=== PATIENT | female | born 2000 | race Hispanic/Latino ===

== ENCOUNTER 2019-09-01 09:41 | Emergency (ER) | payer OTHER, SELFPAY ==
[2019-09-01 10:08] VITALS: BP 126/70; PULSE 104; RESP 16; TEMP 37.2; O2SAT 100
--- NOTE | 2019-09-01 10:40 | ED.URI ---
HPI - URI/Sore Throat General Chief Complaint: Upper Respiratory Infection Stated Complaint: cold Time Seen by Provider: 09/01/19 10:29 Source: patient and RN notes reviewed Mode of arrival: ambulatory Limitations: no limitations History of Present Illness HPI Narrative: Patient presents today complaining of 3-day history of dry cough. States she had a runny nose during onset of cough, but this has resolved. Denies fever, congestion, sore throat. Reports sick contacts at work. At onset of symptoms, she did take 1 cough pill at home, which provided some relief. 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 Patient was told not to return to work until she has been tested for COVID-19. MD elicited complaint: cough Related Data Home Medications Medication Instructions Recorded Confirmed No Home Medications 09/01/19 09/01/19 Allergies Allergy/AdvReac Type Severity Reaction Status Date / Time No Known Allergies Allergy Unverified 11/24/10 12:20 Review of Systems Review of Systems: Narrative: CONSTITUTIONAL: Denies body aches, fever, chills, or sweats. EYES: Denies visual changes, redness, or discharge. ENT: Denies congestion, sore throat, or otalgia.+ Rhinorrhea?resolved CARDIOVASCULAR: Denies chest pain, palpitations, or edema. RESPIRATORY: Denies dyspnea.+ Cough GASTROINTESTINAL: Denies abdominal pain, nausea, vomiting, or diarrhea. GENITOURINARY: Denies dysuria or hematuria. SKIN: Denies rash, itching, or wounds. MUSCULOSKELETAL: Denies back pain, joint pain, or myalgia. NEUROLOGIC: Denies headache, numbness, tingling, or weakness. PSYCH: Denies depression or anxiety. PMFSH Comments At time of signature, I have reviewed and agree with nursing past medical, surgical, social and family history unless otherwise noted. Please see nursing chart for further information. There is no relevant family history pertinent to the presenting complaint Exam Narrative: Exam Narrative: GENERAL: Well-appearing, well-nourished, and in no acute distress. HEAD: Normocephalic, atraumatic. EYES: EOMI. No redness or drainage. Conjunctivae normal. ENT: Mucous membranes pink and moist. Nares clear. No rhinorrhea. TMs normal bilaterally. Throat normal with small amount of postnasal drainage. Uvula midline. NECK: Normal AROM. Supple. No lymphadenopathy. CHEST: No respiratory distress. Clear to auscultation. HEART: Regular rate and rhythm. No murmur appreciated. Normal peripheral pulses. ABDOMEN: Soft, nontender, nondistended, normal active bowel sounds. MUSCULOSKELETAL: No bony tenderness. EXTREMITIES: Normal range of motion. No edema. SKIN: Warm, dry, no rash. Capillary refill normal. Normal skin turgor. NEURO: No focal deficits. Alert and oriented x3. Gait steady. PSYCH: Normal affect. No signs of depression or anxiety. Course Course Emergency Course: Will write patient for COVID testing. At this time, the likelihood of her having COVID-19 is rather low in my opinion, based on her HPI and exam findings. Symptoms are likely due to environmental allergies. Educated patient on treatment. Vital Signs Vital signs: Vital Signs Temperature 99.0 F 09/01/19 10:08 Pulse Rate 104 H 09/01/19 10:08 Respiratory Rate 16 09/01/19 10:08 Blood Pressure 126/70 09/01/19 10:08 Pulse Oximetry 100 09/01/19 10:08 Temperature 99.0 F 09/01/19 10:08 Pulse Rate 104 H 09/01/19 10:08 Respiratory Rate 16 09/01/19 10:08 Blood Pressure 126/70 09/01/19 10:08 Pulse Oximetry 100 09/01/19 10:08 MDM - URI/Sore Throat Differential Diagnosis Differential diagnosis: Likely upper respiratory infection, bronchitis and other (Allergic rhinitis, seasonal allergies) Critical Care Time Critical Care Time Critical Care Time: No Discharge Plan Discharge Clinical Impression: Allergic rhinitis Qualifiers: Allergic rhinitis trigger: unspecified Allergic rhinitis s
--- NOTE | 2019-09-01 10:59 | PC.NURSE ---
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
== END 2019-09-01 10:53 | disposition home or self-care (01) ==
PROVIDERS: Emergency Provider Nurse Practitioner
DX: U07.1 COVID-19 (principal); J30.2 Other seasonal allergic rhinitis
CPT/HCPCS: 87635; 99211; C9803; G0463; U0003

== ENCOUNTER 2020-09-28 22:35 | Emergency (ER) | payer OTHER, SELFPAY ==
--- NOTE | ~2020-09-28 | XR_ITS ---
EXAMINATION: XR chest 2V 09/28/2020 22:59 INDICATION: Chest pain and chest palpitations PROCEDURE: 2 view chest COMPARISON: 10/18/2020 FINDINGS: The lungs are clear. The cardiomediastinal silhouette is within normal limits. There are no pleural effusions. There is no pneumothorax suspected. IMPRESSION: 1: NO ACUTE CARDIOPULMONARY DISEASE. Reviewed, dictated and finalized at location A.
[2020-09-28 22:37] VITALS: BP 142/92; PULSE 115; RESP 16; TEMP 36.6; O2SAT 97
--- NOTE | 2020-09-28 22:40 | ECG_ITS ---
Measurements Intervals [place] Rate: 107 P: 52 [place]: 158 QRS: 54 QRSD: 87 T: 13 QT: 329 QTc: 441 Interpretive Statements SINUS TACHYCARDIA INCOMPLETE RIGHT BUNDLE BRANCH BLOCK MINIMAL Q WAVES- INFERIOR LEADS BASELINE ARTIFACT- I, II, III, AVR, AVF ABNORMAL ECG Electronically Signed On 09-29-2020 8:18:30 CDT by Osman Aleman D.O.
[2020-09-28 22:59] LABS: Basophils Percent Auto 0.3 % (0.2-1.2); Eosinophils Absolute Auto 0.1 K/mm3 (0-0.3); Eosinophils Percent Auto 0.4 % (0-4.4); Hematocrit 38.4 % (37.0-47.0); Hemoglobin 12.5 g/dL (12.0-15.0); Immature Granulocyte Absolute 0.04 K/mm3 (0.00-0.031); Immature Granulocyte Percent A 0.3 % (0-0.5); Mean Corpuscular HGB Conc 32.6 g/dl (32-36); Mean Corpuscular Hemoglobin 28.5 pg (26-34); Mean Corpuscular Volume 87.7 fl (80-100); Mean Platelet Volume 9.6 fl (7.4-10.4); Monocytes Percent Auto 7.8 % (2.6-8.5); Neutrophils Absolute Auto 8.4 K/mm3 (1.3-6.7); Neutrophils Percent Auto 67.2 % (45.5-73.1); Platelet Count Result 298 k/mm3 (150-375); Red Blood Count 4.38 M/mm3 (4.2-5.4); Red Cell Distribution Width 13.3 % (11.5-14.5); White Blood Count 12.5 K/mm3 (4.5-10.0)
[2020-09-28 23:10] LABS: Prothrombin Time 12.6 Seconds (11.1-14.7)
[2020-09-28 23:11] LABS: Partial Thromboplastin Time 27.9 SECONDS (22.3-36.8)
[2020-09-28 23:12] LABS: Anion Gap 11 mmol/L (8-16); Blood Urea Nitrogen 11 mg/dL (7-17); Calcium 9.5 mg/dL (8.4-10.2); Carbon Dioxide 24 mmol/L (22-30); Chloride 103 mmol/L (98-107); Estimated CRCL calculation 103 ml/min; Estimated Glomerular Filt Rate > 60; Glucose 119 mg/dL (65-105); Potassium 3.5 mmol/L (3.4-5.0); Sodium 138 mmol/L (137-145)
[2020-09-28 23:24] LABS: Troponin I < 0.012 ng/mL (0.000-0.034)
[2020-09-29] VITALS (12 sets, daily range): BP systolic 96–117; BP diastolic 58–80; PULSE 67–97; RESP 16–20; TEMP 36.3; O2SAT 99–100
[2020-09-29 04:43] LABS: Troponin I < 0.012 ng/mL (0.000-0.034)
--- NOTE | 2020-09-29 04:47 | ED.GENADULT ---
HPI - General Adult General Chief complaint: Arrhythmia/Palpitations Stated complaint: heart palpatations Time Seen by Provider: 09/29/20 03:30 History of Present Illness HPI narrative: Patient is a 19-year-old female presents emerged from with chief complaint of palpitations and chest pain. Patient reports that she started having some episodes where she noticed that her heart rate would go up to 120 and noticed that she had some tightness in her chest. Patient reports that currently symptoms have resolved at this point but states she is concerned because her heart rate keeps popping up intermittently to about 120. Patient denies syncope reports that she elevated tightness whenever this happens reports that she has been under more stress and reports that she has been consuming a fair amount of caffeine Related Data Home Medications Medication Instructions Recorded Confirmed No Home Medications 09/01/19 09/01/19 Allergies Allergy/AdvReac Type Severity Reaction Status Date / Time No Known Allergies Allergy Verified 09/29/20 03:43 Review of Systems Review of Systems: Narrative: A 10 system review of systems was completed on the patient and is negative except for what is stated in the HPI. Nursing and ancillary documentation was reviewed. [facility] Social History Social History Gender identity (if verbalized by the patient): Female Exam Narrative: Exam Narrative: GENERAL: Well-appearing, well-nourished, and in no acute distress. HEAD: Normocephalic, atraumatic. EYES: PERRLA and EOMI. ENT: Nares clear, no rhinorrhea or epistaxis. Mucous membranes moist. NECK: Supple. CHEST: Clear to auscultation. No respiratory distress. HEART: Regular rate and rhythm. No murmur heard. Normal peripheral pulses. ABDOMEN: Soft, nontender, nondistended, normal active bowel sounds. EXTREMITIES: Normal range of motion. No edema. SKIN: Warm, dry, no rash. NEURO: No focal deficits. Alert and oriented x3. PSYCH: Normal mood and affect. Course Course Emergency Course: EKG is sinus tachycardia with rate of [address] elevation or ST depression or widened QRS no QT prolongation Vital Signs Vital signs: Vital Signs Temperature 36.6 C 09/28/20 22:37 Pulse Rate 115 H 09/28/20 22:37 Respiratory Rate 16 09/28/20 22:37 Blood Pressure 142/92 H 09/28/20 22:37 Pulse Oximetry 97 09/28/20 22:37 Temperature 36.3 C L 09/29/20 00:49 Pulse Rate 79 09/29/20 04:15 Respiratory Rate 18 09/29/20 04:15 Blood Pressure 97/69 L 09/29/20 04:15 Pulse Oximetry 100 09/29/20 03:40 Medical Decision Making Vital Signs Vital Signs: Vital Signs Temperature 36.6 C 09/28/20 22:37 Pulse Rate 115 H 09/28/20 22:37 Respiratory Rate 16 09/28/20 22:37 Blood Pressure 142/92 H 09/28/20 22:37 Pulse Oximetry 97 09/28/20 22:37 Temperature 36.3 C L 09/29/20 00:49 Pulse Rate 79 09/29/20 04:15 Respiratory Rate 18 09/29/20 04:15 Blood Pressure 97/69 L 09/29/20 04:15 Pulse Oximetry 100 09/29/20 03:40 Lab Data Result diagrams: 09/28/20 22:48 09/28/20 22:48 Labs: Lab Results 09/28/20 09/28/20 09/28/20 Range/Units 22:48 22:48 22:48 WBC 12.5 H (4.5-10.0) K/mm3 RBC 4.38 (4.2-5.4) M/mm3 Hgb 12.5 (12.0-15.0) g/dL Hct 38.4 (37.0-47.0) % MCV 87.7 (80-100) fl MCH 28.5 (26-34) pg MCHC 32.6 (32-36) g/dl RDW 13.3 (11.5-14.5) % Plt Count 298 (150-375) k/mm3 MPV 9.6 (7.4-10.4) fl Immature Gran % (Auto) 0.3 (0-0.5) % Neut % (Auto) 67.2 (45.5-73.1) % Lymph % (Auto) 24.0 (18.3-44.2) % [place] % (Auto) 7.8 (2.6-8.5) % Eos % (Auto) 0.4 (0-4.4) % Baso % (Auto) 0.3 (0.2-1.2) % Lymph # (Auto) 3.00 (0.9-3.2) K/mm3 [place] # (Auto) 1.0 H (0.1-0.6) K/mm3 Eos # (Auto) 0.1 (0-0.3) K/mm3 Baso # (Auto) 0.0 (0.0-0.1) K/mm3 Abs Immat Gran
== END 2020-09-29 05:10 | disposition home or self-care (01) ==
PROVIDERS: Emergency Medicine; Emergency Provider Emergency Medicine
DX: R00.2 Palpitations (principal); R00.0 Tachycardia, unspecified; I45.10 Unspecified right bundle-branch block
CPT/HCPCS: 36415; 71046; 80048; 84484; 85025; 85610; 85730; 93005; 99284

== ENCOUNTER 2021-06-03 11:37 | Outpatient (CLI) | payer OTHER, SELFPAY ==
--- NOTE | ~2021-06-03 | US_ITS ---
EXAMINATION: US soft tissue head and neck DATE: 06/03/2021 12:23 INDICATION: Left neck lump. TECHNIQUE: Multiple grayscale and Doppler ultrasound images of the neck were obtained. COMPARISON: None FINDINGS: There are normal lymph nodes in the neck bilaterally. The submandibular glands are unremark able. IMPRESSION: 1. No abnormal mass or lymphadenopathy. Reviewed, dictated and finalized at location A. 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
--- NOTE | ~2021-06-03 | US_ITS ---
EXAMINATION: US abdomen complete EXAM DATE: 06/03/2021 12:23 INDICATION: Upper abdominal pain. TECHNIQUE: Multiple grayscale and Doppler images of the complete abdomen were obtained (by a technolo gist who performed the scan) and subsequently reviewed. There is no prior study for comparison. FINDINGS: The abdominal aorta is normal in caliber. Visualized portion IVC is patent. The pancreatic head a nd body are normal in appearance. The pancreatic tail is not visualized. The liver has normal echogenicity and contour. There are no focal liver lesions identified. There is no evidence of intrahepatic biliary duct dilation. Portal venous flow was seen in the hepatopedal , normal direction and has normal Doppler waveform. Common bile duct measures 4 mm, which is normal. The gallbladder wall is normal in thickness, with ex pected amount of distention. No sonographic evidence of pericholecystic fluid. There is no cholelit hiases. Technologist performing exam reports patient did not demonstrate sonographic Royal's sign. Please note that this sign is less reliable in patients who have received pain medication. Right kidney: There is normal contour and echogenicity. It measures 10.9 x 4.8 x 4.9 centimeters. There are no focal renal lesions identified. There is no hydronephrosis. Left kidney: There is normal contour and echogenicity. It measures 11.3 x 3.9 x 4.8 centimeters. T here are no focal renal lesions identified. There is no hydronephrosis. The spleen measures 9.3 centimeters and is morphologically normal. IMPRESSION: 1. Unremarkable complete abdominal ultrasound exam. Reviewed, dictated and finalized at location A. 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
== END 2021-06-03 11:38 | disposition home or self-care (01) ==
PROVIDERS: PCP Internal Medicine Infectious Disease; Visit Provider Internal Medicine Infectious Disease
DX: R10.10 Upper abdominal pain, unspecified (principal); R22.1 Localized swelling, mass and lump, neck
CPT/HCPCS: 76536; 76700

== ENCOUNTER 2022-06-29 08:50 | Emergency (ER) | payer OTHER, SELFPAY ==
[2022-06-29 09:05] VITALS: BP 127/83; PULSE 92; RESP 16; TEMP 36.6; O2SAT 100
--- NOTE | 2022-06-29 09:07 | ED.NAVMDI ---
HPI - Nausea/Vomiting/Diarrhea General Chief complaint: Nausea/Vomiting/Diarrhea Stated complaint: Abdominal Pain/Vomiting/Headache Time Seen by Provider: 06/29/22 09:14 Source: patient and RN notes reviewed Mode of arrival: ambulatory Limitations: no limitations History of Present Illness HPI Narrative: 21-year-old female presents concern for nausea, 2 episodes of vomiting, epigastric discomfort, headache that started last night. She reports she ate fits yesterday and has sometimes had vomiting when she eats fish. She reports some sinus pressure, denies sore throat. She denies diarrhea. 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 She denies taking any medications for her symptoms. MD elicited complaint: nausea and vomiting Related Data Allergies Allergy/AdvReac Type Severity Reaction Status Date / Time No Known Allergies Allergy Verified 06/29/22 09:04 Review of Systems Review of Systems: CONSTITUTIONAL: Denies malaise, chills, sweats, or fever. ENT: Denies rhinorrhea, sinus pain, otalgia or sore throat. Reports sinus pressure CARDIOVASCULAR: Denies chest pain, palpitations, or edema. RESPIRATORY: Denies cough or dyspnea. GASTROINTESTINAL: Reports epigastric abdominal discomfort, nausea, vomiting. Denies diarrhea, bloody, or mucous stools. GENITOURINARY: Denies dysuria or hematuria. MUSCULOSKELETAL: Denies myalgia. NEUROLOGIC: Reports headache. All systems reviewed & are unremarkable except as noted in HPI and below PMFSH Social History Social History Gender identity (if verbalized by the patient): Female Comments At time of signature, agree with nursing past medical, surgical, social and family history. There is no relevant family history pertinent to the presenting complaint Exam Narrative: GENERAL: Well-appearing, well-nourished, and in no acute distress. HEAD: Normocephalic, atraumatic. EYES: PERRLA, conjunctivae clear, and EOMI. ENT: Nares clear, turbinates pink, no rhinorrhea or epistaxis. Mucous membranes moist. Oropharynx without edema, erythema, or lesions. Tonsils not enlarged and without exudate. NECK: Supple. No lymphadenopathy CHEST: Speaks in full sentences. No respiratory distress. HEART: Regular rate and rhythm. ABDOMEN: Soft, flat, nondistended, nontender. No guarding, rebound tenderness, or rigidity. No pulsatile masses. Bowel sounds present in all four quadrants. No organomegaly. Negative Royal?s sign. No periumbilical tenderness. No Supra public tenderness or distension. Good femoral pulses bilaterally. No hernia noted. No scars or surface trauma. SKIN: Warm, dry, no rash. NEURO: Alert and oriented x3. PSYCH: Normal mood and affect Course Course Emergency Course: Patient is aware of diagnosis, understands and agrees to treatment plan. Anticipatory guidance given. Patient agrees to follow-up as directed and is aware of reasons to seek care at the emergency department. Portions of this record may have been created with voice recognition software Level of Care: Express Care Visit Vital Signs Vital signs: Vital Signs Temperature 97.9 F 06/29/22 09:05 Pulse Rate 92 06/29/22 09:05 Respiratory Rate 16 06/29/22 09:05 Blood Pressure 127/83 06/29/22 09:05 Pulse Oximetry 100 06/29/22 09:05 Oxygen Delivery Room Air 06/29/22 09:05 Temperature 97.9 F 06/29/22 09:05 Pulse Rate 92 06/29/22 09:05 Respiratory Rate 16 06/29/22 09:05 Blood Pressure 127/83 06/29/22 09:05 Pulse Oximetry 100 06/29/22 09:05 Oxygen Delivery Room Air 06/29/22 09:05 Reviewed. MDM - Nausea/Vomiting/Diarrhea MDM Narrative Medical decision making narrative: No evidence of pancreatitis, AAA, cholecystitis, choledocholithiasis, cholangitis, mesenteric ischemia, small bowel obstruction, diverticulitis, colitis, appendicitis, or pelvic etiology such as ovarian torsion, TOA, or ectopic . Patient
== END 2022-06-29 09:37 | disposition home or self-care (01) ==
PROVIDERS: Emergency Provider Nurse Practitioner
DX: R11.2 Nausea with vomiting, unspecified (principal)
CPT/HCPCS: 87081; 87880; 99213; G0463

== ENCOUNTER 2023-04-02 09:33 | Emergency (ER) | payer OTHER, SELFPAY ==
[2023-04-02 09:50] VITALS: BP 136/83; PULSE 109; RESP 16; TEMP 36.9; O2SAT 99
--- NOTE | 2023-04-02 10:11 | ED.UPPEXIN ---
HPI - Extremity Injury (Upper) General Chief Complaint: Extremity Injury, Upper Stated Complaint: left foot/forearm pain after accident 1 year ago Time Seen by Provider: 04/02/23 10:11 Source: patient Mode of arrival: ambulatory Limitations: no limitations History of Present Illness HPI narrative: 22-year-old female presents today with complaint of pain to left elbow and forearm. States yesterday she picked up a bag of ice and felt pop in her left elbow. Had pain and was unable to go to work today. Patient requesting note for work to return tomorrow. Patient offered x-ray to evaluate injury but She did not want X-ray. All systems reviewed and negative except as noted above. Related Data Home Medications Medication Instructions Recorded Confirmed No Home Medications 04/02/23 04/02/23 Allergies Allergy/AdvReac Type Severity Reaction Status Date / Time No Known Allergies Allergy Verified 04/02/23 10:15 Review of Systems Review of Systems: CONSTITUTIONAL: Denies fever, chills, or sweats. EYES: Denies visual changes, redness, or discharge. ENT: Denies rhinorrhea, congestion, sore throat, or otalgia. CARDIOVASCULAR: Denies chest pain, palpitations, or edema. RESPIRATORY: Denies cough or dyspnea. GASTROINTESTINAL: Denies abdominal pain, nausea, vomiting, or diarrhea. GENITOURINARY: Denies dysuria or hematuria. SKIN: Denies rash or itching. MUSCULOSKELETAL: Denies back pain . Reports pain to left elbow and forearm. NEUROLOGIC: Denies headache, numbness, or weakness. PSYCHIATRIC: Denies anxiety or depression. All other systems reviewed are negative, except as documented in HPI. PMFSH Social History Social History Gender identity (if verbalized by the patient): Female Comments At time of signature, agree with nursing past medical, surgical, social and family history. There is no relevant family history pertinent to the presenting complaint. Exam Narrative: GENERAL: This is a well-nourished, well-developed patient, in no apparent distress. HEAD: normocephalic, atraumatic. EYES: PERRL. Sclera clear/white. Vision is grossly intact. EARS: External ears normal NOSE: External nose normal NECK: Neck supple, non-tender without lymphadenopathy, masses or thyromegaly. CARDIOVASCULAR: Regular rate and rhythm without murmurs, gallops, or rubs. RESPIRATORY: Clear to auscultation. Breath sounds equal bilaterally. No wheezes, rales, or rhonchi. SKIN: warm, Dry, intact with no suspicious lesions or rash, good texture and turgor. NEURO: awake, alert, and oriented to person, place and time. There were no obvious focal neurologic abnormalities. EXTREMITIES: No joint tenderness, effusion, or edema noted. Normal range of motion to left elbow and forearm. No tenderness on palpation. No swelling or contusion noted. Distal neurovascularly intact. Course Course Level of Care: Express Care Visit Vital Signs Vital signs: Vital Signs Temperature 36.9 C 04/02/23 09:50 Pulse Rate 109 H 04/02/23 09:50 Respiratory Rate 16 04/02/23 09:50 Blood Pressure 136/83 04/02/23 09:50 Pulse Oximetry 99 04/02/23 09:50 Oxygen Delivery Room Air 04/02/23 09:50 Temperature 36.9 C 04/02/23 09:50 Pulse Rate 109 H 04/02/23 09:50 Respiratory Rate 16 04/02/23 09:50 Blood Pressure 136/83 04/02/23 09:50 Pulse Oximetry 99 04/02/23 09:50 Oxygen Delivery Room Air 04/02/23 09:50 Reviewed MDM - Extremity Injury (Upper) MDM Narrative Medical decision making narrative: patient here for pain to left elbow and forearm after picking up a bag of ice. Patient needs work note. Does not want x-ray. Patient is aware of diagnosis, understands and agrees to treatment plan. Anticipatory guidance given. Patient agrees to follow-up as directed and is aware of reasons to seek care at the emergency department. Portions of this record
== END 2023-04-02 10:25 | disposition home or self-care (01) ==
PROVIDERS: Emergency Provider Nurse Practitioner Family
DX: S56.912A Strain of unspecified muscles, fascia and tendons at forearm level, left arm, initial encounter (principal); X58.XXXA Exposure to other specified factors, initial encounter
CPT/HCPCS: 99212; G0463

== ENCOUNTER 2023-06-26 14:58 | Emergency (ER) | payer OTHER, SELFPAY ==
--- NOTE | ~2023-06-26 | XR_ITS ---
EXAMINATION: XR chest 2V Exam Date/Time: 06/26/2023 16:40 CDT HISTORY: left sided chest discomfort/palpitations Comparison: 09/28/2020, report only. RESULT: Lines, tubes, and devices: None. Lungs and pleura: Clear. Cardiomediastinal silhouette: Normal. Other: No acute osseous or upper abdominal finding. IMPRESSION: No acute cardiopulmonary process. Reviewed, dictated and finalized at location K.
--- NOTE | ~2023-06-26 | CT_ITS ---
EXAMINATION: CT brain wo con DATE: 06/26/2023 16:43 INDICATION: palpitations- tingling to the side of face . TECHNIQUE: Computed tomography (CT) of the head was performed without intravenous contrast. The mA wa s adjusted according to patient size. Iterative reconstruction technique was employed. The dose-lengt h product was 605.33 mGy-cm. COMPARISON: None. FINDINGS: No acute intracranial hemorrhage or extra-axial fluid collection. No hydrocephalus, mass, or herniation. No acute ischemic infarct. Unremarkable dural venous sinus attenuation. No acute osseous abnormality. The aerated spaces are clear. IMPRESSION: No acute intracranial process. Reviewed, dictated and finalized at location K.
--- NOTE | 2023-06-26 15:00 | ECG_ITS ---
Measurements Intervals [place] Rate: 114 P: 61 CO: 164 QRS: 66 QRSD: 97 T: 28 QT: 319 QTc: 441 Interpretive Statements SINUS TACHYCARDIA POSSIBLE LEFT ATRIAL ENLARGEMENT [-0.1mV P-WAVE IN V1/V2] INCOMPLETE RIGHT BUNDLE BRANCH BLOCK NONSPECIFIC T-WAVE ABNORMALITY COMPARED TO ECG 09/28/2020 22:43:48 NO SIGNIFICANT CHANGES Electronically Signed On 06-27-2023 12:16:59 CDT by Francisca Salazar M.D.
[2023-06-26 15:04] VITALS: BP 161/101; PULSE 117; RESP 20; TEMP 36.7; O2SAT 100
--- NOTE | 2023-06-26 15:43 | ED.ARRPALP ---
HPI - Arrhythmia/Palpitations General Chief Complaint: Arrhythmia/Palpitations Stated Complaint: palpitations Time Seen by Provider: 06/26/23 15:49 Focused HPI: Farzana is a 22-year-old female patient presenting to the ER today with complaints of left-sided facial tingling, near syncope, palpitations, shortness breath, and left-sided chest discomfort. She reports she has had the symptoms for approximately 2 weeks. Was seen in the urgent care and the provider stated that she may have pot syndrome. Left-sided chest discomfort is more so when taking deep breath and is reproducible upon palpation. Feels as though her heart is beats up and then slows down. Had to leave work today due to the symptoms. General: Well-developed, well nourished, in no apparent distress Head: Normocephalic, atraumatic Eyes: Pupils equally round and reactive to light bilaterally, EOM intact, sclera and conjunctive clear, no discharge, lids normal Ears: TMs intact and clear, ear canals clear, no drainage, grossly hearing normal. Nose: Nares patent, no discharge, no inflammation, no sinus tenderness. Mouth: Oropharynx without lesions or masses, good dentition, MMM. Tongue midline, even rise and fall of uvula Neck: Supple, trachea midline, no enlargement of anterior or posterior cervical nodes, no thyroid masses or goiter palpable. Cardio: Regular rate and rhythm, s1 and s2 normal, no murmur appreciated. Resp: Clear to auscultation bilaterally anteriorly and posteriorly, no rhonchi, rales, wheezing or rubs Musculoskeletal: No deformity,tender to palpation over the left chest wall, grossly normal range of motion, muscle strength strong and equal, peripheral pulse strong, no edema, no cyanosis, normal gait and station Neuro: Alert and oriented x4 with normal speech, no focal deficits, cranial nerves I through XII intact, muscle strength 5 out of 5, sensation intact but dull to the left side of the face when compared to right side of face-feels as though she has got tingling sensation in the left side of her face. Able to wrinkle forehead, close eyes tightly bilaterally, and smile is symmetric Patient screened in triage and initial orders placed. Additional care and disposition to be based upon diagnostic testing and treatment. Related Data Allergies Allergy/AdvReac Type Severity Reaction Status Date / Time No Known Allergies Allergy Verified 04/02/23 10:15 [facility] Social History Social History Gender identity (if verbalized by the patient): Female Course Vital Signs Vital signs: Vital Signs Temperature 36.7 C 06/26/23 15:04 Pulse Rate 117 H 06/26/23 15:04 Respiratory Rate 20 06/26/23 15:04 Blood Pressure 161/101 H 06/26/23 15:04 Pulse Oximetry 100 06/26/23 15:04 Oxygen Delivery Room Air 06/26/23 15:04 Temperature 36.7 C 06/26/23 15:04 Pulse Rate 114 H 06/26/23 17:56 Respiratory Rate 18 06/26/23 18:20 Blood Pressure 124/80 06/26/23 18:20 Pulse Oximetry 100 06/26/23 15:04 Oxygen Delivery Room Air 06/26/23 15:04 MDM - Arrhythmia/Palpitations Lab Data 06/26/23 16:22 06/26/23 16:22 Labs: Lab Results 06/26/23 06/26/23 06/26/23 Range/Units 16:20 16:22 17:55 WBC 10.1 H (4.5-10.0) K/mm3 RBC 4.62 (4.2-5.4) M/mm3 Hgb 12.9 (12.0-15.0) g/dL Hct 41.5 (37.0-47.0) % MCV 89.8 (80-100) fl MCH 27.9 (26-34) pg MCHC 31.1 L (32-36) g/dl RDW 13.6 (11.5-14.5) % Plt Count 316 (150-375) k/mm3 MPV 9.9 (7.4-10.4) fl Immature Gran % (Auto) 0.2 (0-0.5) % Neut % (Auto) 73.5 H (45.5-73.1) % Lymph % (Auto) 20.1 (18.3-44.2) % [place] % (Auto) 5.8 (2.6-8.5) % Eos % (Auto) 0.1 (0-4.4) % Baso % (Auto) 0.3 (0.2-1.2) % Lymph # (Auto) 2.03 (0.9-3.2) K/mm3 [place] # (Auto) 0.6 (0.1-0.6) K/mm3 Eos # (Auto) 0.0 (0-0.3) K/mm3 Baso # (Auto) 0.0 (0.0-0.1)
[2023-06-26 16:36] LABS: Basophils Percent Auto 0.3 % (0.2-1.2); Eosinophils Percent Auto 0.1 % (0-4.4); Hematocrit 41.5 % (37.0-47.0); Hemoglobin 12.9 g/dL (12.0-15.0); Immature Granulocyte Absolute 0.02 K/mm3 (0.00-0.031); Immature Granulocyte Percent A 0.2 % (0-0.5); Lymphocytes Absolute Auto 2.03 K/mm3 (0.9-3.2); Lymphocytes Percent Auto 20.1 % (18.3-44.2); Mean Corpuscular HGB Conc 31.1 g/dl (32-36); Mean Corpuscular Hemoglobin 27.9 pg (26-34); Mean Corpuscular Volume 89.8 fl (80-100); Mean Platelet Volume 9.9 fl (7.4-10.4); Monocytes Absolute Auto 0.6 K/mm3 (0.1-0.6); Monocytes Percent Auto 5.8 % (2.6-8.5); Neutrophils Absolute Auto 7.4 K/mm3 (1.3-6.7); Neutrophils Percent Auto 73.5 % (45.5-73.1); Platelet Count Result 316 k/mm3 (150-375); Red Blood Count 4.62 M/mm3 (4.2-5.4); Red Cell Distribution Width 13.6 % (11.5-14.5); White Blood Count 10.1 K/mm3 (4.5-10.0)
[2023-06-26 16:41] LABS: Appearance Urine Clear (Clear); Bilirubin Urine Negative (Negative); Blood Urine Negative (Negative); Color Urine Yellow (Yellow); Glucose Urine UA Negative (Negative); Ketones Urine Negative (Negative); Leukocyte Esterase Ur Negative LEU/UL (Negative); Nitrate Urine Negative (Negative); Protein Urine Negative (Negative); Urobilinogen Urine 0.2 mg/dL (<2.0); pH Urine 7.5 (5.0-9.0)
[2023-06-26 16:43] LABS: Add Urine Microscopic? NO
[2023-06-26 16:45] LABS: Alanine Aminotransferase 16 U/L (6-35); Albumin Level 4.8 g/dL (3.5-5.1); Alkaline Phosphatase 88 U/L (38-126); Anion Gap 6 mmol/L (4-12); Aspartate Amino Transferase 26 U/L (14-36); Bilirubin,Total 0.4 mg/dL (0.2-1.3); Blood Urea Nitrogen 9 mg/dL (7-17); Carbon Dioxide 27 mmol/L (22-30); Chloride 104 mmol/L (98-107); Estimated CRCL calculation 98 ml/min; Estimated Glomerular Filt Rate > 60; Glucose 91 mg/dL (65-110); Magnesium 2.1 mg/dL (1.6-2.3); Potassium 3.9 mmol/L (3.4-5.0); Sodium 137 mmol/L (137-145)
--- NOTE | 2023-06-26 16:51 | ED.ARRPALP ---
HPI - Arrhythmia/Palpitations General Chief Complaint: Arrhythmia/Palpitations Stated Complaint: palpitations Time Seen by Provider: 06/26/23 15:49 Source: patient and family Mode of arrival: ambulatory History of Present Illness HPI narrative: 22 years old white female came to the emergency room by private car with her mom complaining of palpitation, fast heartbeat since she was a little child. Intermittent, comes and goes. Been diagnosed of anxiety, quit taking medications few months ago. Patient reports a lot of stress at her work lately. She denies any chest pain, fever, chills or shortness of breath. Related Data Allergies Allergy/AdvReac Type Severity Reaction Status Date / Time No Known Allergies Allergy Verified 04/02/23 10:15 Review of Systems Review of Systems: All systems reviewed & are unremarkable except as noted in HPI and below PMFSH Social History Social History Gender identity (if verbalized by the patient): Female Exam Narrative: General appearance: Well-developed, well-nourished Skin: Normal color Head: Normocephalic, nontraumatic Eyes: Clear conjunctiva ENT: Oropharynx normal, ears normal, nose normal Neck: Supple, nontender Chest and respiratory: Airway patent, no respiratory distress, no accessory muscle use Heart: Tachycardia, regular rate Abdomen: Soft, nontender, no organomegaly, quiet bowel sounds Vascular: Normal peripheral pulses, normal capillary refill. Musculoskeletal: Normal range of motion, nontender back Neurologic: Alert and oriented ?3, [employer] is normal as tested, no gross motor deficit Course Vital Signs Vital signs: Vital Signs Temperature 36.7 C 06/26/23 15:04 Pulse Rate 117 H 06/26/23 15:04 Respiratory Rate 20 06/26/23 15:04 Blood Pressure 161/101 H 06/26/23 15:04 Pulse Oximetry 100 06/26/23 15:04 Oxygen Delivery Room Air 06/26/23 15:04 Temperature 36.7 C 06/26/23 15:04 Pulse Rate 114 H 06/26/23 17:56 Respiratory Rate 20 06/26/23 15:04 Blood Pressure 132/82 06/26/23 17:56 Pulse Oximetry 100 06/26/23 15:04 Oxygen Delivery Room Air 06/26/23 15:04 MDM - Arrhythmia/Palpitations MDM Narrative Medical decision making narrative: Patient presents with palpitation which she has been going since she was a little child off and on. History of anxiety/depression, quit taking medication for a while. Physical examination showed sinus tachycardia less than 110, depressed looking patient, otherwise within normal limits Blood workup, TSH, chest x-ray, showed no acute abnormality. EKG showed sinus tachycardia at 114 beats per minute Discharged on clonazepam, follow-up with Dr. Salazar for further evaluation Differential Diagnosis Differential diagnosis: Likely other (As above) Lab Data 06/26/23 16:22 06/26/23 16:22 Labs: Lab Results 06/26/23 06/26/23 06/26/23 Range/Units 16:20 16:22 17:55 WBC 10.1 H (4.5-10.0) K/mm3 RBC 4.62 (4.2-5.4) M/mm3 Hgb 12.9 (12.0-15.0) g/dL Hct 41.5 (37.0-47.0) % MCV 89.8 (80-100) fl MCH 27.9 (26-34) pg MCHC 31.1 L (32-36) g/dl RDW 13.6 (11.5-14.5) % Plt Count 316 (150-375) k/mm3 MPV 9.9 (7.4-10.4) fl Immature Gran % (Auto) 0.2 (0-0.5) % Neut % (Auto) 73.5 H (45.5-73.1) % Lymph % (Auto) 20.1 (18.3-44.2) % Tillman % (Auto) 5.8 (2.6-8.5) % Eos % (Auto) 0.1 (0-4.4) % Baso % (Auto) 0.3 (0.2-1.2) % Lymph # (Auto) 2.03 (0.9-3.2) K/mm3 Tillman # (Auto) 0.6 (0.1-0.6) K/mm3 Eos # (Auto) 0.0 (0-0.3) K/mm3 Baso # (Auto) 0.0 (0.0-0.1) K/mm3 Abs Immat
[2023-06-26 16:57] LABS: INR 0.9; NT Pro B Type Natriuretic Pept < 20 pg/mL (19.9-100); Troponin I < 0.012 ng/mL (0.000-0.034)
[2023-06-26 16:58] LABS: Partial Thromboplastin Time 28.2 Seconds (22.3-36.8)
[2023-06-26 17:18] LABS: D Dimer 0.58 ug/mL (<0.48)
[2023-06-26 17:55] VITALS: BP 134/83; PULSE 98
[2023-06-26 17:56] VITALS: BP 130/86; BP 132/82; PULSE 101; PULSE 114
[2023-06-26 17:58] LABS: Glucose Point of Care 96 mg/dl (65-105)
[2023-06-26 18:20] VITALS: BP 124/80; RESP 18
== END 2023-06-26 18:20 | disposition home or self-care (01) ==
PROVIDERS: Nurse Practitioner Family; Emergency Provider Emergency Medicine; PCP Internal Medicine Infectious Disease
DX: R00.2 Palpitations (principal); F41.9 Anxiety disorder, unspecified; R00.0 Tachycardia, unspecified; I45.10 Unspecified right bundle-branch block; R94.31 Abnormal electrocardiogram [ECG] [EKG]
CPT/HCPCS: 36415; 70450; 71046; 80053; 81003; 82948; 83735; 83880; 84443; 84484; 85025; 85380; 85610; 85730; 93005; 99284

== ENCOUNTER 2024-02-08 09:32 | Outpatient (CLI) | payer OTHER, SELFPAY ==
--- NOTE | ~2024-02-08 | XR_ITS ---
EXAMINATION: XR femur LT min 2V DATE: 02/08/2024 09:53 INDICATION: Left thigh pain TECHNIQUE: AP and lateral views of the left femur were obtained on overlapping proximal and distal im ages. COMPARISON: None. FINDINGS: Alignment is normal. No fracture or suspected osteonecrosis. Joint space at the left knee, hip and bi lateral sacralized joints are normal. Transitional L5 segment which is sacralized on the left with mi ld degenerative change at the articulation with the sacrum. Left supra-acetabular sclerotic bone mohinder nd. Soft tissues are unremarkable. IMPRESSION: 1. No osseous abnormality from the left hip through the knee. 2. Transitional L5 segment, sacralized on the left with mild degenerative changes at its articulation with the sacrum. Reviewed, dictated and finalized at location B. [employer] IMPRESSION: 1. No osseous abnormality from the left hip through the knee. 2. Transitional L5 segment, sacralized on the left with mild degenerative carranza es at its articulation with the sacrum.
--- NOTE | ~2024-02-08 | XR_ITS ---
EXAMINATION: XR lumbar spine 2-3V DATE: 02/08/2024 09:53 INDICATION: Chronic back pain. Left eye pain. TECHNIQUE: Anteroposterior and lateral views of the lumbar spine, and cone-down lateral view of the l umbosacral junction were obtained. COMPARISON: None. FINDINGS: Transitional thoracolumbar and lumbosacral segments. There are bilateral hypoplastic riblets at what for purposes of this report will be designated L1 with 12 paired rib-bearing more cephalad thoracic s egments evident on chest radiograph dated 08/29/2023. S1 is also transitional, lumbarized on the right. There are 4 intervening nonrib-bearing lumbar segments, L2-L5. 5 degrees lumbar levocurvature. Sagit deb alignment is normal. Vertebral body heights are normal. Small Schmorl's nodes at the inferior end plate of L1 and superior endplate of L3. Normal bowel gas pattern. IMPRESSION: 1. Transitional thoracolumbar and lumbosacral segments with 5 degrees lumbar levocurvature. Reviewed, dictated and finalized at location B. [employer] IMPRESSION: 1. Transitional thoracolumbar and lumbosacral segments with 5 degrees lumbar le vocurvature.
== END 2024-02-08 09:33 | disposition home or self-care (01) ==
PROVIDERS: PCP Internal Medicine Infectious Disease; Visit Provider Internal Medicine Infectious Disease
DX: M43.8X6 Other specified deforming dorsopathies, lumbar region (principal); M47.898 Other spondylosis, sacral and sacrococcygeal region; G89.29 Other chronic pain
CPT/HCPCS: 72100; 73552

== ENCOUNTER 2024-02-18 12:33 | Emergency (ER) | payer OTHER, SELFPAY ==
--- NOTE | ~2024-02-18 | XR_ITS ---
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 RESULT: Lines, tubes, and devices: None. Lungs and pleura: Clear. Cardiomediastinal silhouette: Stable. Other: No acute osseous or upper abdominal finding. IMPRESSION: No acute cardiopulmonary process. Reviewed, dictated and finalized at location K. ENGINEER
--- NOTE | ~2024-02-18 | CT_ITS ---
EXAMINATION: CTA chest PE protocol DATE: 02/18/2024 19:57 INDICATION: sob, palpitations, dizziness, +dimer TECHNIQUE: Computed tomography angiography (CTA) of the chest was performed with intravenous contrast timed to evaluate the pulmonary arteries. Coronal maximum intensity projection 3D-reconstructions we re created by the technologist. The dose-length product (DLP) was 271.67 mGy-cm. Automated exposure c ontrol and iterative reconstruction technique were employed. COMPARISON: None. FINDINGS: Lung parenchyma and airways: Clear. Pleura: Unremarkable. Thoracic inlet, axillae and chest wall: Unremarkable. Thoracic aorta: No significant dilation. No dissection. Mediastinum: Normal. Heart and pericardium: Normal. Coronary artery calcifications: Absent. Upper abdomen: No significant finding. Bones: No acute osseous finding. Pulmonary arteries: Study quality: Adequate. No pulmonary emboli detected. IMPRESSION: No CT evidence of acute pulmonary embolus. No acute process detected in the chest. Reviewed, dictated and finalized at location K. E MAKER
[2024-02-18 12:40] VITALS: BP 137/95; PULSE 124; RESP 15; TEMP 36.6; O2SAT 100
--- NOTE | 2024-02-18 12:43 | ECG_ITS ---
Test Date: 2024-02-18 12:49:44 Measurements Intervals [place] Rate: 116 P: 62 GA: 159 QRS: 77 QRSD: 104 T: 50 QT: 372 QTc: 518 Interpretive Statements SINUS TACHYCARDIA POSSIBLE LEFT ATRIAL ENLARGEMENT INCOMPLETE RIGHT BUNDLE BRANCH BLOCK MINIMAL Q WAVES- ANTEROLAT/INF LEADS BORDERLINE T WAVE ABNORMALITY- ANTERIOR LEADS BASELINE ARTIFACT- I, II, III, AVR, AVL, AVF, V1-V6 ABNORMAL ECG No previous ECG available for comparison Electronically Signed On 02-18-2024 12:56:25 [employer]CIAL SALES [employer] by Osman Aleman D.O.
--- NOTE | 2024-02-18 14:58 | ED_ITS ---
HPI - Arrhythmia/Palpitations General Chief Complaint: Arrhythmia/Palpitations <Bronwyn Garsia PA-C - Last Filed: 02/18/24 15:04> Stated Complaint: high hr <JEANNINE Salmon Last Filed: 02/18/24 15:04> Time Seen by Provider: 02/18/24 14:58 <JEANNINE Salmon Last Filed: 02/18/24 15:04> Focused HPI: Patient is a 23 y/o female who presents to the ED with c/o palpitations. Patient reports her heart rate has been intermittently elevated for several months. Was seen here in June for this, thought to be r/t anxiety. She does have hx of anxiety but is not on any medications for this. States today she began feeling ill at work and noticed her HR was elevated. States she has feeling dizzy/lightheaded, having some SOB, and c/o pain in L sided chest. Reported having cough/cold sx's last week, which have improved. Denies lower extremity pain or swelling. Denies fevers. GENERAL: Well-appearing, obese with bmi of 31.2, and in no acute distress. HEAD: Normocephalic, atraumatic. CHEST: Clear to auscultation. ?No respiratory distress. HEART: Tachycardic with regular rhythm.?No appreciable murmur. NEURO: ?Alert and oriented x3. Patient screened in triage and initial orders placed.? ?Additional care and disposition to be based upon?diagnostic testing and treatment. <Bronwyn Garsia PA-C - Last Filed: 02/18/24 15:04> Source: patient <JEANNINE Salmon Last Filed: 02/18/24 15:04> Mode of arrival: ambulatory <JEANNINE Salmon Last Filed: 02/18/24 15:04> Limitations: no limitations <JEANNINE Salmon Last Filed: 02/18/24 15:04> History of Present Illness HPI narrative: Agree with above <Flory Bowling MD - Last Filed: 02/18/24 21:12> Related Data Allergies/Adverse Reactions: Allergies Allergy/AdvReac Type Severity Reaction Status Date / Time No Known Allergies Allergy Verified 02/18/24 20:02 <Bronwyn Garsia PA-C - Last Filed: 02/18/24 15:04> Review of Systems Review of Systems: All systems reviewed & are unremarkable except as noted in HPI and below <Flory Bowling MD - Last Filed: 02/18/24 21:12> [facility] Social History Social History: Social History Gender identity (if verbalized by the patient): Female <Bronwyn Garsia PA-C - Last Filed: 02/18/24 15:04> Exam Narrative: GENERAL: Somewhat anxious seeming, very pleasant and cooperative, nontoxic HEAD: Normocephalic, atraumatic. EYES: PERRLA and EOMI. ENT: Mucous membranes moist. NECK: Supple. CHEST: No respiratory distress. HEART: Regular rate and rhythm ABDOMEN: Soft, nontender, nondistended EXTREMITIES: Normal range of motion SKIN: Warm, dry, no rash. NEURO: Alert and oriented x3. PSYCH: Normal mood and affect. <Flory Bowling MD - Last Filed: 02/18/24 21:12> Course Vital Signs Vital signs: Vital Signs Temperature 98 F 02/18/24 12:40 Pulse Rate 124 H 02/18/24 12:40 Respiratory Rate 15 02/18/24 12:40 Blood Pressure 137/95 H 02/18/24 12:40 Pulse Oximetry 100 02/18/24 12:40 Temperature 98 F 02/18/24 12:40 Pulse Rate 98 02/18/24 20:00 Respiratory Rate 27 H 02/18/24 20:00 Blood Pressure 128/88 02/18/24 20:00 Pulse Oximetry 100 02/18/24 20:00 <Bronwyn Garsia PA-C - Last Filed: 02/18/24 15:04> Vital Signs Temperature 98 F 02/18/24 12:40 Pulse Rate 124 H 02/18/24 12:40 Respiratory Rate 15 02/18/24 12:40 Blood Pressure 137/95 H 02/18/24 12:40 Pulse Oximetry 100 02/18/24 12:40 Temperature 98 F 02/18/24 12:40 Pulse Rate 98 02/18/24 20:00 Respiratory Rate 27 H 02/18/24 20:00 Blood Pressure 128/88 02/18/24 20:00 Pulse Oximetry 100 02/18/24 20:00 <Flory Bowling MD - Last Filed: 02/18/24 21:12> MDM - Arrhythmia/Palpitations MDM Narrative Medical decision making narrative: MSE by [facility] in triage. <Bronwyn Garsia PA-C - Last Filed: 02/18/24 15:04> MSE by [facility] in triage. 23-year-old female presenting with palpitations, lightheadedness, shortness of breath. Patient tachycardic on arrival, remainder of vitals are within normal limits. EKG per my interpretation shows sinus tachycardia, incomplete right bundle, no ST elevations or depressions. Blood work with elevated D-dimer so CTA was obtained which shows no pulmonary embolus. Patient was given a dose of Atarax and states that her anxiety is definitely improved. Will send in for prescription for this. Discussed appropriate supportive care and recommend close PCP follow-up. Patient may benefit from a Holter monitor given the recurrence of the symptoms. Appropriate return precautions given. Discharged in stable condition. <Flory Bowling MD - Last Filed: 02/18/24 21:12> Lab Data Result diagrams: 02/18/24 15:03 02/18/24 15:03 <Bronwyn Garsia PA-C - Last Filed: 02/18/24 15:04> Labs: Lab Results 02/18/24 02/18/24 02/18/24 Range/Units 15:03 15:03 15:03 WBC 10.6 H (4.5-10.0) K/mm3 RBC 4.54 (4.2-5.4) M/mm3 Hgb 13.0 (12.0-15.0) g/dL Hct 40.5 (37.0-47.0) % MCV 89.2 (80-100) fl MCH 28.6 (26-34) pg MCHC 32.1 (32-36) g/dl RDW 13.6 (11.5-14.5) % Plt Count 310 (150-375) k/mm3 MPV 9.9 (7.4-10.4) fl Immature Gran % (Auto) 0.3 (0-0.5) % Neut % (Auto) 69.5 (45.5-73.1) % Lymph % (Auto) 23.3 (18.3-44.2) % [place] % (Auto) 6.1 (2.6-8.5) % Eos % (Auto) 0.5 (0-4.4) % Baso % (Auto) 0.3 (0.2-1.2) % Lymph # (Auto) 2.48 (0.9-3.2) K/mm3 [place] # (Auto) 0.7 H (0.1-0.6) K/mm3 Eos # (Auto) 0.1 (0-0.3) K/mm3 Baso # (Auto) 0.0 (0.0-0.1) K/mm3 Abs Immat Gran (auto) 0.03 (0.00-0.031) K/mm3 Absolute Neuts (auto) 7.4 H (1.3-6.7) K/mm3 Absolute Nucleated RBC 0.000 (0.0-0.012) K/mm3 Nucleated RBC % 0.0 (0.0-0.2) % D-Dimer 0.95 H (<0.48) ug/mL Sodium Cancelled 139 Potassium Cancelled 3.8 Chloride Cancelled Carbon Dioxide Anion Gap BUN Creatinine Estim Creat Clear Calc Estimated GFR Glucose Calcium Magnesium Total Bilirubin AST ALT Alkaline Phosphatase Troponin I (0.000-0.034) ng/mL Total Protein Albumin TSH (Reflex) (0.465-4.68) uIU/mL 02/18/24 02/18/24 02/18/24 Range/Units 15:03 15:03 15:03 WBC (4.5-10.0) K/mm3 RBC (4.2-5.4) M/mm3 Hgb (12.0-15.0) g/dL Hct (37.0-47.0) % MCV (80-100) fl MCH (26-34) pg MCHC (32-36) g/dl RDW (11.5-14.5) % Plt Count (150-375) k/mm3 MPV (7.4-10.4) fl Immature Gran % (Auto) (0-0.5) % Neut % (Auto) (45.5-73.1) % Lymph % (Auto) (18.3-44.2) % [place] % (Auto) (2.6-8.5) % Eos % (Auto) (0-4.4) % Baso % (Auto) (0.2-1.2) % Lymph # (Auto) (0.9-3.2) K/mm3 [place] # (Auto) (0.1-0.6) K/mm3 Eos # (Auto) (0-0.3) K/mm3 Baso # (Auto) (0.0-0.1) K/mm3 Abs Immat Gran (auto) (0.00-0.031) K/mm3 Absolute Neuts (auto) (1.3-6.7) K/mm3 Absolute Nucleated RBC (0.0-0.012) K/mm3 Nucleated RBC % (0.0-0.2) % D-Dimer (<0.48) ug/mL Sodium Potassium Chloride 103 Carbon Dioxide Cancelled 27 Anion Gap Cancelled 9 BUN Cancelled Creatinine Estim Creat Clear Calc Estimated GFR Glucose Calcium Magnesium Total Bilirubin AST ALT Alkaline Phosphatase Troponin I (0.000-0.034) ng/mL Total Protein Albumin TSH (Reflex) (0.465-4.68) uIU/mL 02/18/24 02/18/24 02/18/24 Range/Units 15:03 15:03 15:03 WBC (4.5-10.0) K/mm3 RBC (4.2-5.4) M/mm3 Hgb (12.0-15.0) g/dL Hct (37.0-47.0) % MCV (80-100) fl MCH (26-34) pg MCHC (32-36) g/dl RDW (11.5-14.5) % Plt Count (150-375) k/mm3 MPV (7.4-10.4) fl Immature Gran % (Auto) (0-0.5) % Neut % (Auto) (45.5-73.1) % Lymph % (Auto) (18.3-44.2) % [place] % (Auto) (2.6-8.5) % Eos % (Auto) (0-4.4) % Baso % (Auto) (0.2-1.2) % Lymph # (Auto) (0.9-3.2) K/mm3 [place] # (Auto) (0.1-0.6) K/mm3 Eos # (Auto) (0-0.3) K/mm3 Baso # (Auto) (0.0-0.1) K/mm3 Abs Immat Gran (auto) (0.00-0.031) K/mm3 Absolute Neuts (auto) (1.3-6.7) K/mm3 Absolute Nucleated RBC (0.0-0.012) K/mm3 Nucleated RBC % (0.0-0.2) % D-Dimer (<0.48) ug/mL Sodium Potassium Chloride Carbon Dioxide Anion Gap BUN 14 D Creatinine Cancelled 0.70 Estim Creat Clear Calc Cancelled 98 Estimated GFR Cancelled Glucose Calcium Magnesium Total Bilirubin AST ALT Alkaline Phosphatase Troponin I (0.000-0.034) ng/mL Total Protein Albumin TSH (Reflex) (0.465-4.68) uIU/mL 02/18/24 02/18/24 02/18/24 Range/Units 15:03 15:03 15:03 WBC (4.5-10.0) K/mm3 RBC (4.2-5.4) M/mm3 Hgb (12.0-15.0) g/dL Hct (37.0-47.0) % MCV (80-100) fl MCH (26-34) pg MCHC (32-36) g/dl RDW (11.5-14.5) % Plt Count (150-375) k/mm3 MPV (7.4-10.4) fl Immature Gran % (Auto) (0-0.5) % Neut % (Auto) (45.5-73.1) % Lymph % (Auto) (18.3-44.2) % [place] % (Auto) (2.6-8.5) % Eos % (Auto) (0-4.4) % Baso % (Auto) (0.2-1.2) % Lymph # (Auto) (0.9-3.2) K/mm3 [place] # (Auto) (0.1-0.6) K/mm3 Eos # (Auto) (0-0.3) K/mm3 Baso # (Auto) (0.0-0.1) K/mm3 Abs Immat Gran (auto) (0.00-0.031) K/mm3 Absolute Neuts (auto) (1.3-6.7) K/mm3 Absolute Nucleated RBC (0.0-0.012) K/mm3 Nucleated RBC % (0.0-0.2) % D-Dimer (<0.48) ug/mL Sodium Potassium Chloride Carbon Dioxide Anion Gap BUN Creatinine Estim Creat Clear Calc Estimated GFR > 60 Glucose Cancelled 98 Calcium Cancelled 9.4 Magnesium Cancelled Total Bilirubin AST ALT Alkaline Phosphatase Troponin I (0.000-0.034) ng/mL Total Protein Albumin TSH (Reflex) (0.465-4.68) uIU/mL 02/18/24 02/18/24 02/18/24 Range/Units 15:03 15:03 15:03 WBC (4.5-10.0) K/mm3 RBC (4.2-5.4) M/mm3 Hgb (12.0-15.0) g/dL Hct (37.0-47.0) % MCV (80-100) fl MCH (26-34) pg MCHC (32-36) g/dl RDW (11.5-14.5) % Plt Count (150-375) k/mm3 MPV (7.4-10.4) fl Immature Gran % (Auto) (0-0.5) % Neut % (Auto) (45.5-73.1) % Lymph % (Auto) (18.3-44.2) % [place] % (Auto) (2.6-8.5) % Eos % (Auto) (0-4.4) % Baso % (Auto) (0.2-1.2) % Lymph # (Auto) (0.9-3.2) K/mm3 [place] # (Auto) (0.1-0.6) K/mm3 Eos # (Auto) (0-0.3) K/mm3 Baso # (Auto) (0.0-0.1) K/mm3 Abs Immat Gran (auto) (0.00-0.031) K/mm3 Absolute Neuts (auto) (1.3-6.7) K/mm3 Absolute Nucleated RBC (0.0-0.012) K/mm3 Nucleated RBC % (0.0-0.2) % D-Dimer (<0.48) ug/mL Sodium Potassium Chloride Carbon Dioxide Anion Gap BUN Creatinine Estim Creat Clear Calc Estimated GFR Glucose Calcium Magnesium 2.0 Total Bilirubin Cancelled 0.4 AST Cancelled 35 ALT Cancelled Alkaline Phosphatase Troponin I (0.000-0.034) ng/mL Total Protein Albumin TSH (Reflex) (0.465-4.68) uIU/mL 02/18/24 02/18/24 02/18/24 Range/Units 15:03 15:03 15:03 WBC (4.5-10.0) K/mm3 RBC (4.2-5.4) M/mm3 Hgb (12.0-15.0) g/dL Hct (37.0-47.0) % MCV (80-100) fl MCH (26-34) pg MCHC (32-36) g/dl RDW (11.5-14.5) % Plt Count (150-375) k/mm3 MPV (7.4-10.4) fl Immature Gran % (Auto) (0-0.5) % Neut % (Auto) (45.5-73.1) % Lymph % (Auto) (18.3-44.2) % [place] % (Auto) (2.6-8.5) % Eos % (Auto) (0-4.4) % Baso % (Auto) (0.2-1.2) % Lymph # (Auto) (0.9-3.2) K/mm3 [place] # (Auto) (0.1-0.6) K/mm3 Eos # (Auto) (0-0.3) K/mm3 Baso # (Auto) (0.0-0.1) K/mm3 Abs Immat Gran (auto) (0.00-0.031) K/mm3 Absolute Neuts (auto) (1.3-6.7) K/mm3 Absolute Nucleated RBC (0.0-0.012) K/mm3 Nucleated RBC % (0.0-0.2) % D-Dimer (<0.48) ug/mL Sodium Potassium Chloride Carbon Dioxide Anion Gap BUN Creatinine Estim Creat Clear Calc Estimated GFR Glucose Calcium Magnesium Total Bilirubin AST ALT 17 Alkaline Phosphatase Cancelled 90 Troponin I < 0.012 (0.000-0.034) ng/mL Total Protein Cancelled 8.0 Albumin Cancelled TSH (Reflex) (0.465-4.68) uIU/mL 02/18/24 Range/Units 15:03 WBC (4.5-10.0) K/mm3 RBC (4.2-5.4) M/mm3 Hgb (12.0-15.0) g/dL Hct (37.0-47.0) % MCV (80-100) fl MCH (26-34) pg MCHC (32-36) g/dl RDW (11.5-14.5) % Plt Count (150-375) k/mm3 MPV (7.4-10.4) fl Immature Gran % (Auto) (0-0.5) % Neut % (Auto) (45.5-73.1) % Lymph % (Auto) (18.3-44.2) % [place] % (Auto) (2.6-8.5) % Eos % (Auto) (0-4.4) % Baso % (Auto) (0.2-1.2) % Lymph # (Auto) (0.9-3.2) K/mm3 [place] # (Auto) (0.1-0.6) K/mm3 Eos # (Auto) (0-0.3) K/mm3 Baso # (Auto) (0.0-0.1) K/mm3 Abs Immat Gran (auto) (0.00-0.031) K/mm3 Absolute Neuts (auto) (1.3-6.7) K/mm3 Absolute Nucleated RBC (0.0-0.012) K/mm3 Nucleated RBC % (0.0-0.2) % D-Dimer (<0.48) ug/mL Sodium Potassium Chloride Carbon Dioxide Anion Gap BUN Creatinine Estim Creat Clear Calc Estimated GFR Glucose Calcium Magnesium Total Bilirubin AST ALT Alkaline Phosphatase Troponin I (0.000-0.034) ng/mL Total Protein Albumin 4.7 TSH (Reflex) 0.505 (0.465-4.68) uIU/mL <Bronwyn Garsia PA-C - Last Filed: 02/18/24 15:04> Lab Results 02/18/24 02/18/24 02/18/24 Range/Units 15:03 15:03 15:03 WBC 10.6 H (4.5-10.0) K/mm3 RBC 4.54 (4.2-5.4) M/mm3 Hgb 13.0 (12.0-15.0) g/dL Hct 40.5 (37.0-47.0) % MCV 89.2 (80-100) fl MCH 28.6 (26-34) pg MCHC 32.1 (32-36) g/dl RDW 13.6 (11.5-14.5) % Plt Count 310 (150-375) k/mm3 MPV 9.9 (7.4-10.4) fl Immature Gran % (Auto) 0.3 (0-0.5) % Neut % (Auto) 69.5 (45.5-73.1) % Lymph % (Auto) 23.3 (18.3-44.2) % [place] % (Auto) 6.1 (2.6-8.5) % Eos % (Auto) 0.5 (0-4.4) % Baso % (Auto) 0.3 (0.2-1.2) % Lymph # (Auto) 2.48 (0.9-3.2) K/mm3 [place] # (Auto) 0.7 H (0.1-0.6) K/mm3 Eos # (Auto) 0.1 (0-0.3) K/mm3 Baso # (Auto) 0.0 (0.0-0.1) K/mm3 Abs Immat Gran (auto) 0.03 (0.00-0.031) K/mm3 Absolute Neuts (auto) 7.4 H (1.3-6.7) K/mm3 Absolute Nucleated RBC 0.000 (0.0-0.012) K/mm3 Nucleated RBC % 0.0 (0.0-0.2) % D-Dimer 0.95 H (<0.48) ug/mL Sodium Cancelled 139 Potassium Cancelled 3.8 Chloride Cancelled Carbon Dioxide Anion Gap BUN Creatinine Estim Creat Clear Calc Estimated GFR Glucose Calcium Magnesium Total Bilirubin AST ALT Alkaline Phosphatase Troponin I (0.000-0.034) ng/mL Total Protein Albumin TSH (Reflex) (0.465-4.68) uIU/mL 02/18/24 02/18/24 02/18/24 Range/Units 15:03 15:03 15:03 WBC (4.5-10.0) K/mm3 RBC (4.2-5.4) M/mm3 Hgb (12.0-15.0) g/dL Hct (37.0-47.0) % MCV (80-100) fl MCH (26-34) pg MCHC (32-36) g/dl RDW (11.5-14.5) % Plt Count (150-375) k/mm3 MPV (7.4-10.4) fl Immature Gran % (Auto) (0-0.5) % Neut % (Auto) (45.5-73.1) % Lymph % (Auto) (18.3-44.2) % [place] % (Auto) (2.6-8.5) % Eos % (Auto) (0-4.4) % Baso % (Auto) (0.2-1.2) % Lymph # (Auto) (0.9-3.2) K/mm3 [place] # (Auto) (0.1-0.6) K/mm3 Eos # (Auto) (0-0.3) K/mm3 Baso # (Auto) (0.0-0.1) K/mm3 Abs Immat Gran (auto) (0.00-0.031) K/mm3 Absolute Neuts (auto) (1.3-6.7) K/mm3 Absolute Nucleated RBC (0.0-0.012) K/mm3 Nucleated RBC % (0.0-0.2) % D-Dimer (<0.48) ug/mL Sodium Potassium Chloride 103 Carbon Dioxide Cancelled 27 Anion Gap Cancelled 9 BUN Cancelled Creatinine Estim Creat Clear Calc Estimated GFR Glucose Calcium Magnesium Total Bilirubin AST ALT Alkaline Phosphatase Troponin I (0.000-0.034) ng/mL Total Protein Albumin TSH (Reflex) (0.465-4.68) uIU/mL 02/18/24 02/18/24 02/18/24 Range/Units 15:03 15:03 15:03 WBC (4.5-10.0) K/mm3 RBC (4.2-5.4) M/mm3 Hgb (12.0-15.0) g/dL Hct (37.0-47.0) % MCV (80-100) fl MCH (26-34) pg MCHC (32-36) g/dl RDW (11.5-14.5) % Plt Count (150-375) k/mm3 MPV (7.4-10.4) fl Immature Gran % (Auto) (0-0.5) % Neut % (Auto) (45.5-73.1) % Lymph % (Auto) (18.3-44.2) % [place] % (Auto) (2.6-8.5) % Eos % (Auto) (0-4.4) % Baso % (Auto) (0.2-1.2) % Lymph # (Auto) (0.9-3.2) K/mm3 [place] # (Auto) (0.1-0.6) K/mm3 Eos # (Auto) (0-0.3) K/mm3 Baso # (Auto) (0.0-0.1) K/mm3 Abs Immat Gran (auto) (0.00-0.031) K/mm3 Absolute Neuts (auto) (1.3-6.7) K/mm3 Absolute Nucleated RBC (0.0-0.012) K/mm3 Nucleated RBC % (0.0-0.2) % D-Dimer (<0.48) ug/mL Sodium Potassium Chloride Carbon Dioxide Anion Gap BUN 14 D Creatinine Cancelled 0.70 Estim Creat Clear Calc Cancelled 98 Estimated GFR Cancelled Glucose Calcium Magnesium Total Bilirubin AST ALT Alkaline Phosphatase Troponin I (0.000-0.034) ng/mL Total Protein Albumin TSH (Reflex) (0.465-4.68) uIU/mL 02/18/24 02/18/24 02/18/24 Range/Units 15:03 15:03 15:03 WBC (4.5-10.0) K/mm3 RBC (4.2-5.4) M/mm3 Hgb (12.0-15.0) g/dL Hct (37.0-47.0) % MCV (80-100) fl MCH (26-34) pg MCHC (32-36) g/dl RDW (11.5-14.5) % Plt Count (150-375) k/mm3 MPV (7.4-10.4) fl Immature Gran % (Auto) (0-0.5) % Neut % (Auto) (45.5-73.1) % Lymph % (Auto) (18.3-44.2) % [place] % (Auto) (2.6-8.5) % Eos % (Auto) (0-4.4) % Baso % (Auto) (0.2-1.2) % Lymph # (Auto) (0.9-3.2) K/mm3 [place] # (Auto) (0.1-0.6) K/mm3 Eos # (Auto) (0-0.3) K/mm3 Baso # (Auto) (0.0-0.1) K/mm3 Abs Immat Gran (auto) (0.00-0.031) K/mm3 Absolute Neuts (auto) (1.3-6.7) K/mm3 Absolute Nucleated RBC (0.0-0.012) K/mm3 Nucleated RBC % (0.0-0.2) % D-Dimer (<0.48) ug/mL Sodium Potassium Chloride Carbon Dioxide Anion Gap BUN Creatinine Estim Creat Clear Calc Estimated GFR > 60 Glucose Cancelled 98 Calcium Cancelled 9.4 Magnesium Cancelled Total Bilirubin AST ALT Alkaline Phosphatase Troponin I (0.000-0.034) ng/mL Total Protein Albumin TSH (Reflex) (0.465-4.68) uIU/mL 02/18/24 02/18/24 02/18/24 Range/Units 15:03 15:03 15:03 WBC (4.5-10.0) K/mm3 RBC (4.2-5.4) M/mm3 Hgb (12.0-15.0) g/dL Hct (37.0-47.0) % MCV (80-100) fl MCH (26-34) pg MCHC (32-36) g/dl RDW (11.5-14.5) % Plt Count (150-375) k/mm3 MPV (7.4-10.4) fl Immature Gran % (Auto) (0-0.5) % Neut % (Auto) (45.5-73.1) % Lymph % (Auto) (18.3-44.2) % [place] % (Auto) (2.6-8.5) % Eos % (Auto) (0-4.4) % Baso % (Auto) (0.2-1.2) % Lymph # (Auto) (0.9-3.2) K/mm3 [place] # (Auto) (0.1-0.6) K/mm3 Eos # (Auto) (0-0.3) K/mm3 Baso # (Auto) (0.0-0.1) K/mm3 Abs Immat Gran (auto) (0.00-0.031) K/mm3 Absolute Neuts (auto) (1.3-6.7) K/mm3 Absolute Nucleated RBC (0.0-0.012) K/mm3 Nucleated RBC % (0.0-0.2) % D-Dimer (<0.48) ug/mL Sodium Potassium Chloride Carbon Dioxide Anion Gap BUN Creatinine Estim Creat Clear Calc Estimated GFR Glucose Calcium Magnesium 2.0 Total Bilirubin Cancelled 0.4 AST Cancelled 35 ALT Cancelled Alkaline Phosphatase Troponin I (0.000-0.034) ng/mL Total Protein Albumin TSH (Reflex) (0.465-4.68) uIU/mL 02/18/24 02/18/24 02/18/24 Range/Units 15:03 15:03 15:03 WBC (4.5-10.0) K/mm3 RBC (4.2-5.4) M/mm3 Hgb (12.0-15.0) g/dL Hct (37.0-47.0) % MCV (80-100) fl MCH (26-34) pg MCHC (32-36) g/dl RDW (11.5-14.5) % Plt Count (150-375) k/mm3 MPV (7.4-10.4) fl Immature Gran % (Auto) (0-0.5) % Neut % (Auto) (45.5-73.1) % Lymph % (Auto) (18.3-44.2) % [place] % (Auto) (2.6-8.5) % Eos % (Auto) (0-4.4) % Baso % (Auto) (0.2-1.2) % Lymph # (Auto) (0.9-3.2) K/mm3 [place] # (Auto) (0.1-0.6) K/mm3 Eos # (Auto) (0-0.3) K/mm3 Baso # (Auto) (0.0-0.1) K/mm3 Abs Immat Gran (auto) (0.00-0.031) K/mm3 Absolute Neuts (auto) (1.3-6.7) K/mm3 Absolute Nucleated RBC (0.0-0.012) K/mm3 Nucleated RBC % (0.0-0.2) % D-Dimer (<0.48) ug/mL Sodium Potassium Chloride Carbon Dioxide Anion Gap BUN Creatinine Estim Creat Clear Calc Estimated GFR Glucose Calcium Magnesium Total Bilirubin AST ALT 17 Alkaline Phosphatase Cancelled 90 Troponin I < 0.012 (0.000-0.034) ng/mL Total Protein Cancelled 8.0 Albumin Cancelled TSH (Reflex) (0.465-4.68) uIU/mL 02/18/24 Range/Units 15:03 WBC (4.5-10.0) K/mm3 RBC (4.2-5.4) M/mm3 Hgb (12.0-15.0) g/dL Hct (37.0-47.0) % MCV (80-100) fl MCH (26-34) pg MCHC (32-36) g/dl RDW (11.5-14.5) % Plt Count (150-375) k/mm3 MPV (7.4-10.4) fl Immature Gran % (Auto) (0-0.5) % Neut % (Auto) (45.5-73.1) % Lymph % (Auto) (18.3-44.2) % [place] % (Auto) (2.6-8.5) % Eos % (Auto) (0-4.4) % Baso % (Auto) (0.2-1.2) % Lymph # (Auto) (0.9-3.2) K/mm3 [place] # (Auto) (0.1-0.6) K/mm3 Eos # (Auto) (0-0.3) K/mm3 Baso # (Auto) (0.0-0.1) K/mm3 Abs Immat Gran (auto) (0.00-0.031) K/mm3 Absolute Neuts (auto) (1.3-6.7) K/mm3 Absolute Nucleated RBC (0.0-0.012) K/mm3 Nucleated RBC % (0.0-0.2) % D-Dimer (<0.48) ug/mL Sodium Potassium Chloride Carbon Dioxide Anion Gap BUN Creatinine Estim Creat Clear Calc Estimated GFR Glucose Calcium Magnesium Total Bilirubin AST ALT Alkaline Phosphatase Troponin I (0.000-0.034) ng/mL Total Protein Albumin 4.7 TSH (Reflex) 0.505 (0.465-4.68) uIU/mL <Flory Bolwing MD - Last Filed: 02/18/24 21:12> Imaging Data Radiologist's impression: ITS Impressions Chest X-Ray 02/18/24 15:17 IMPRESSION: No acute cardiopulmonary process. Chest CTA 02/18/24 20:05 IMPRESSION: No CT evidence of acute pulmonary embolus. No acute process detected in the chest. <Flory Bowling MD - Last Filed: 02/18/24 21:12> Critical Care Time Critical Care Time Critical Care Time: No <Flory Bowling MD - Last Filed: 02/18/24 21:12> Discharge Plan Discharge Clinical Impression: Palpitations, Anxiety, Light-headedness <Bronwyn Garsia PA-C - Last Filed: 02/18/24 15:04> Patient Disposition: Home, Self-Care <Bronwyn Garsia PA-C - Last Filed: 02/18/24 15:04> Condition: Stable <Bronwyn Garsia PA-C - Last Filed: 02/18/24 15:04> Instructions: Antibiotic Form, Heart Palpitations (ED) <Bronwyn Garsia PA-C - Last Filed: 02/18/24 15:04> Additional Instructions: Your workup today is reassuring. We have sent in for a mild anxiety medication, please take this as prescribed. Please follow-up closely with primary care. You may benefit from a Holter monitor in the future. You may also follow-up with Cardiology at the number below. If your symptoms worsen or other concerning symptoms arise, please return to the ER. <Bronwyn Garsia PA-C - Last Filed: 02/18/24 15:04> Prescriptions: New hydroxyzine HCl 50 mg tablet 50 mg PO TID PRN (Reason: anxiety) Qty: 20 0RF No Action clonazepam 0.25 mg tablet,disintegrating 0.25 mg PO BID Qty: 14 0RF <Bronwyn Garsia PA-C - Last Filed: 02/18/24 15:04> Follow-up/Referrals: Osman Aleman DO [Physician] - Ronak Young MD [Physician] - <Bronwyn Garsia PA-C - Last Filed: 02/18/24 15:04>
[2024-02-18 15:09] LABS: Basophils Percent Auto 0.3 % (0.2-1.2); Eosinophils Absolute Auto 0.1 K/mm3 (0-0.3); Eosinophils Percent Auto 0.5 % (0-4.4); Hematocrit 40.5 % (37.0-47.0); Immature Granulocyte Absolute 0.03 K/mm3 (0.00-0.031); Immature Granulocyte Percent A 0.3 % (0-0.5); Lymphocytes Absolute Auto 2.48 K/mm3 (0.9-3.2); Lymphocytes Percent Auto 23.3 % (18.3-44.2); Mean Corpuscular HGB Conc 32.1 g/dl (32-36); Mean Corpuscular Hemoglobin 28.6 pg (26-34); Mean Corpuscular Volume 89.2 fl (80-100); Mean Platelet Volume 9.9 fl (7.4-10.4); Monocytes Absolute Auto 0.7 K/mm3 (0.1-0.6); Monocytes Percent Auto 6.1 % (2.6-8.5); Neutrophils Absolute Auto 7.4 K/mm3 (1.3-6.7); Neutrophils Percent Auto 69.5 % (45.5-73.1); Platelet Count Result 310 k/mm3 (150-375); Red Blood Count 4.54 M/mm3 (4.2-5.4); Red Cell Distribution Width 13.6 % (11.5-14.5); White Blood Count 10.6 K/mm3 (4.5-10.0)
[2024-02-18 15:36] LABS: D Dimer 0.95 ug/mL (<0.48)
[2024-02-18 16:22] LABS: Alanine Aminotransferase 17 U/L (6-35); Albumin Level 4.7 g/dL (3.5-5.1); Alkaline Phosphatase 90 U/L (38-126); Anion Gap 9 mmol/L (4-12); Aspartate Amino Transferase 35 U/L (14-36); Bilirubin,Total 0.4 mg/dL (0.2-1.3); Blood Urea Nitrogen 14 mg/dL (7-17); Calcium 9.4 mg/dL (8.4-10.2); Carbon Dioxide 27 mmol/L (22-30); Chloride 103 mmol/L (98-107); Estimated CRCL calculation 98 ml/min; Estimated Glomerular Filt Rate > 60; Glucose 98 mg/dL (65-110); Potassium 3.8 mmol/L (3.4-5.0); Sodium 139 mmol/L (137-145)
[2024-02-18 16:34] LABS: Troponin I < 0.012 ng/mL (0.000-0.034)
[2024-02-18 16:39] LABS: Thyroid Stimulating Hormone Reflex 0.505 uIU/mL (0.465-4.68)
[2024-02-18] MEDS: SODIUM CHLORIDE 0.9% IV 1,000 ML 999 ML IV CONT (19:33)
[2024-02-18 20:00] VITALS: BP 128/88; PULSE 110; PULSE 98; RESP 27; O2SAT 100
[2024-02-18] MEDS: hydrOXYzine HCL 25 MG TABLET 50 MG PO (20:02)
[2024-02-18 21:35] VITALS: BP 126/79; PULSE 100; RESP 19; O2SAT 99
== END 2024-02-18 21:35 | disposition home or self-care (01) ==
PROVIDERS: Physician Assistant; Emergency Provider Emergency Medicine; PCP Internal Medicine Infectious Disease
DX: R00.2 Palpitations (principal); F41.9 Anxiety disorder, unspecified; R42 Dizziness and giddiness
CPT/HCPCS: 36415; 71046; 71275; 80053; 83735; 84443; 84484; 85025; 85380; 93005; 96360; 99284; A9270; J7030; Q9967

== ENCOUNTER 2024-02-27 15:13 | Outpatient (CLI) | payer OTHER, SELFPAY ==
--- NOTE | ~2024-02-27 | US_ITS ---
EXAMINATION: US soft tissue UE LT DATE: 02/27/2024 15:56 INDICATION: Nodule skin, left upper limb. TECHNIQUE: Multiple grayscale and Doppler ultrasound images of the left upper limb were obtained. COMPARISON: None FINDINGS: There is no abnormal mass or cyst in the patient's area of concern in left upper limb. IMPRESSION: 1. No abnormality in the patient's area of concern in left upper limb. Reviewed, dictated and finalized at location A. LOPMENTAL SERVICES WORKER
== END 2024-02-27 15:14 | disposition home or self-care (01) ==
LOC: ANHIMG 15:18
PROVIDERS: PCP Nurse Practitioner Adult Health; Visit Provider Internal Medicine Infectious Disease
DX: R22.32 Localized swelling, mass and lump, left upper limb (principal)
CPT/HCPCS: 76882

== ENCOUNTER 2024-03-24 11:32 | Outpatient (CLI) | payer OTHER, SELFPAY ==
--- NOTE | ~2024-03-24 | MR_ITS ---
EXAMINATION: MR cervical spine wo con DATE: 03/24/2024 11:56 INDICATION: Cervical radiculopathy. TECHNIQUE: Magnetic resonance imaging (MRI) of the cervical spine was performed without intravenous c ontrast. COMPARISON: None FINDINGS: There is 6 degrees levocurvature of cervicothoracic spine. There is mild kyphosis of cervic al spine. There is mild chronic anterior wedging of T1 vertebral body. Intervertebral disc heights ar e normal. The spinal cord signal intensity is normal. The following disc levels are specifically disc ussed: C2-C3 through C6-C7: The disc does not extend beyond the endplate margin. There is no uncovertebral j oint osteoarthritis. There is no facet joint osteoarthritis. There is no neural foraminal stenosis. T here is no central canal stenosis. C7-T1: The disc does not extend beyond the endplate margin. There is no uncovertebral joint osteoarth ritis. There is mild bilateral facet joint osteoarthritis. There is no neural foraminal stenosis. The re is no central canal stenosis. IMPRESSION: 1. 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 Reviewed, dictated and finalized at location A. TRONIC PREPRESS TECHNICIAN
== END 2024-03-24 11:33 | disposition home or self-care (01) ==
LOC: ANHIMG 11:33
PROVIDERS: PCP Nurse Practitioner Adult Health; Visit Provider Internal Medicine Infectious Disease
DX: M47.812 Spondylosis without myelopathy or radiculopathy, cervical region (principal)
CPT/HCPCS: 72141

== ENCOUNTER 2024-05-12 08:43 | Emergency (ER) | payer OTHER, SELFPAY ==
[2024-05-12 09:02] VITALS: BP 117/71; PULSE 91; RESP 16; TEMP 36.3; O2SAT 99
--- NOTE | 2024-05-12 09:08 | ED_ITS ---
HPI - URI/Sore Throat General Chief Complaint: Upper Respiratory Infection Stated Complaint: cough,congestion,SOB Time Seen by Provider: 05/12/24 09:08 Source: patient, RN notes reviewed and old records reviewed Mode of arrival: ambulatory Limitations: no limitations History of Present Illness HPI Narrative: Patient presents with 2 day history cough and congestion, feels as though she can not get a deep breath. Has not been taking any medication for her symptoms. She is concerned because she was exposed to COVID. She is not in any distress Related Data Allergies Allergy/AdvReac Type Severity Reaction Status Date / Time No Known Allergies Allergy Verified 05/12/24 09:11 Review of Systems Review of Systems: All systems reviewed & are unremarkable except as noted in HPI and below Constitutional: Constitutional: Reports no additional constitutional complaints ENT: Reports system reviewed and no additional complaints, except as documented Cardiovascular: Cardiovascular: Reports no additional cardiovascular complaints Respiratory: Respiratory: Reports as per HPI and Reports no additional respiratory complaints Gastrointestinal: Gastrointestinal: Reports no additional gastrointestinal complaints [facility] Past Medical History Medical History Anxiety Family History Family History Father Diabetes mellitus Grandparent Hypertension Grandparent Depression Anxiety Social History Social History Smoking status: Never smoker Alcohol intake: never Substance use type: does not use Do You Feel Safe in your Home?: Yes Lack of Transportation: No Current Housing: I Have Housing Concerned About Future Housing: No Difficulty Paying Gas/Electric Bills: No Difficulty Paying for Meds: No Currently Unemployed: No Education: Associate Degree Difficulty w/ Childcare or Family Care: No Living arrangements: with family 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 There is no relevant family history pertinent to the patient complaint. Exam Const: General: cooperative, no acute distress, alert and awake Orientatio n/consciousness: oriented to person, oriented to place and oriented to time HENMT: Head: normal to inspection Resp: Effort & Inspection: normal respiratory effort and able to speak in complete sentences Auscultation: clear to auscultation bilaterally, no crackles, no rales, no rhonchi and no wheezes Cardio: Palpation: normal PMI Rate: regular rate Rhythm: regular rhythm Heart sounds: S1 normal heart sound present and S2 normal heart sound present Neuro: General: oriented to person, oriented to place and oriented to time Cranial nerves: Yes CN's II-XII intact bilaterally Psych: Appearance: grossly normal Thought process: Normal thought process present Insight: Good insight present (Psych) Judgement: Good judgement present (Psych) Course Course Level of Care: Express Care Visit Vital Signs Vital signs: Vital Signs Temperature 97.3 F L 05/12/24 09:02 Pulse Rate 91 05/12/24 09:02 Respiratory Rate 16 05/12/24 09:02 Blood Pressure 117/71 05/12/24 09:02 Pulse Oximetry 99 05/12/24 09:02 Oxygen Delivery Room Air 05/12/24 09:02 Temperature 97.3 F L 05/12/24 09:02 Pulse Rate 91 05/12/24 09:02 Respiratory Rate 16 05/12/24 09:02 Blood Pressure 117/71 05/12/24 09:02 Pulse Oximetry 99 05/12/24 09:02 Oxygen Delivery Room Air 05/12/24 09:02 Reviewed MDM - URI/Sore Throat MDM Narrative Medical decision making narrative: Negative flu, positive COVID. Patient with reassuring physical exam. Treat symptomatically with bronchodilator, steroid burst. Work note provided. Discharge instructions reviewed with patient, as well as provided in writing per nursing staff. The instructions also include specific and strict return/GO TO THE ER as well as f/u information. All questions have been answered, and the patient deny any further questions with discharge and discharge plan. Some parts of this dictation were generated by voice recognition software and may contain typographical and/or grammatical inaccuracies. Differential Diagnosis Differential diagnosis: Likely upper respiratory infection, viral infection and bronchitis Medical Records Attestation: I reviewed the patient's medical records. Lab Data Attestation: I reviewed the patient's lab results. Discharge Plan Discharge Clinical Impression: COVID-19 Patient Disposition: Home, Self-Care Condition: Stable Instructions: Antibiotic Form, How to Recover from COVID-19 at Home (ED) Additional Instructions: Use medications as prescribed. Follow-up with primary care provider. Emergency department for new or worse symptoms Patient Language: Barbadian Prescriptions: New prednisone 50 mg tablet 50 mg PO DAILY Qty: 5 0RF albuterol sulfate [Ventolin HFA] 90 mcg/actuation HFA aerosol inhaler 2 puff inhalation QID PRN (Reason: shortness of breath or wheezing) Qty: 8.5 0RF No Action fluoxetine 10 mg tablet 10 mg PO QHS Qty: 90 0RF hydroxyzine HCl 10 mg tablet 10 mg PO DAILY PRN (Reason: anxiety) Qty: 30 3RF Follow-up/Referrals: Didi Jiménez APRN [Primary Care Provider] - 2 Weeks Stand Alone Forms: Work/School Release IP Time of Disposition: 09:25
[2024-05-12 13:36] LABS: EDCOVIDSCREEN Positive (Negative); EDINFLUASCREEN Negative (Negative); EDINFLUBSCREEN Negative (Negative)
== END 2024-05-12 09:33 | disposition home or self-care (01) ==
PROVIDERS: Emergency Provider Nurse Practitioner Family; PCP Nurse Practitioner Adult Health
DX: U07.1 COVID-19 (principal)
CPT/HCPCS: 87426; 87804; 99213; G0463

== ENCOUNTER 2024-07-16 15:30 | Outpatient (RCR) | payer OTHER, SELFPAY ==
--- NOTE | 2024-06-05 16:23 | OPREHPOC ---
Outpatient Therapy Plan of Care This is a Multidisciplinary Plan of Care that may contain components documented by all disciplines (PT, OT, and ST.) PT Problem 1 PT Problem #1 Knowledge Deficit PT Goal 1 Goal / Goal Update *indep with HEP Target Visit 10 PT Goal 2 Goal / Goal Update * pt demonstrate correct body mechanics with simulated work tasks of moving pt in bed and across stretcher Target Visit 10 PT Problem 2 PT Problem #2 Pain PT Goal 1 Goal / Goal Update * pt report back pain rating at worst of 610 Target Visit 10 PT Goal 2 Goal / Goal Update * self assessment functional score of 24% limitation in activity, to increase her activity level Target Visit 10 PT Problem 3 PT Problem #3 Impaired Flexibility PT Goal 1 Goal / Goal Update *increase L hip flexibility, to decrease pull and strain over lumbar spine: 1* supine hip flexion 105' 2* supine piriformis stretch- pass mid line of body 3* supine hip ER 20' 4* supine hamstring stretch with SLR 85' Target Visit 10 PT Problem 4 PT Problem #4 Impaired Strength PT Goal 1 Goal / Goal Update increase scapular-thoracic strength to improve support to spine: pt stand with shoulders in correct position/ not rounded forward Target Visit 10
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
--- NOTE | 2024-07-16 16:18 | PTOPDC ---
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 The goals were achieved. Discharge PT. She is to continue with her home exercises and good posture and body mechanics. Plan of Care PT Services Indicated No
== END 2024-07-17 10:34 | disposition home or self-care (01) ==
LOC: ANHPT 15:30
PROVIDERS: PCP Nurse Practitioner Adult Health; Visit Provider Nurse Practitioner Adult Health
DX: M41.9 Scoliosis, unspecified (principal)
CPT/HCPCS: 97110; 97140; 97162; 97530

== ENCOUNTER 2025-01-29 07:27 | Outpatient (CLI) | payer OTHER, SELFPAY ==
--- OUTSIDE RECORDS SUMMARY | 2009-08-18 08:00 | XMS_ITS | Continuity of Care Document ---
Author Organization [facility] Address [address] [place] [address] Phone Care Team Providers Care Nutrition Educator Name Role Phone Rodriguez OD, Hakeem Unavailable Unavailable Procedures Procedure Date Eye Exam, New Patient Refraction Advance Directives Directive Yes / No Effective Date File Name No Information Encounters Encounter Description Practice Location Reason(s) For Visit Diagnoses Date Provider Providers Copied on Encounter [facility], [address], [place], [place], [id number], [place] tel:[phone] SEC [facility] No Information 6-201 0 Rodriguez OD Hakeem. [address] , [address], [place], [address], [place]. tel:[phone] Family History Family Member Type Diagnosis Age At Onset No Information Payers Payer name Insurance type Covered green party ID Authoriza tion(s) Medicaid [facility] [id number] Social History Type Description Quantity Date Captured Comments Sex Female Smoking Status No Information Chief Complaint And Reason For Visit No Information Reason For Referral Reason For Referral No Information History Of Present Illness Encounter Date Complaint History Of Prese nt Illness No Information Functional Status Date Functional Assessmen t No Information Instructions Date Instruction Additional Infor mation No Information Assessments Type Assessment Date No Information Patient Care Teams Name Effective Dates (start - stop) Status Members No Information
--- NOTE | ~2025-01-29 | MR_ITS ---
EXAM/PROCEDURE: MR shoulder LT wo con HISTORY: M25.512 - Pain in left shoulder COMPARISON: None available. TECHNIQUE: Standard technique for nonarthrographic left shoulder MRI performed. FINDINGS: No fracture or dislocation. Arthrosis at the AC joint with slight cephalad displacement of the distal clavicle at the AC joint may be associated with previous AC joint separation. Minimal T2 hyperintense signal changes present about the AC joint. No labral tear seen on this nonarthrographic exam. No significant joint effusion. The rotator cuff appears intact. Long head of the biceps tendon is intact within the bicipital groove and superior labral attachment partially visualized appears normal. Spinoglenoid recess and suprascapular notch regions appear normal. 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 Otherwise normal-appearing right shoulder. Reviewed, dictated and finalized at location A. PROJECT MANAGER
--- NOTE | ~2025-01-29 | XR_ITS ---
EXAMINATION: XR ankle LT 2V, 01/29/2025 15:20 IMPROVEMENT ENGINEER HISTORY: NON TRAUMA LATERAL ANKLE PAIN FOR 1 WEEK COMPARISON: No comparisons available. Findings: No acute fracture or malalignment. No significant degenerative changes. Soft tissues unremarkable. Impression: No acute fracture or malalignment. Reviewed, dictated and finalized at location P. OVEMENT ENGINEER Impression: No acute fracture or malalignment.
--- OUTSIDE RECORDS SUMMARY | 2025-01-29 16:28 | XMS_ITS | Encounter Summary ---
Author Organization [facility] Healthcare Address [address] [place] [address] Care Team Providers Care Waist Pleater Name Role Phone No, Physician Primary Care Provider [phone] Rakesh Bravo MD Primary Care Provider Encounter Details Date Type Department Care Team ([facility] st Contact Info) Description 02/18/2024 Orders Only [facility] Health Information Management [address] [place] [id number] Scanning, Provider Social History Tobacco Use Types Packs/Day Years Used Date Smoking Tobacco: Never Assessed Comments Unknown Sex and Gender Information Value Date Recorded Sex Assigned at Not on file Legal Sex Female 9:16 AM CDT Gender Identity Not on file Sexual Orientation Not on file documented as of this encounter Plan of Treatment Not on file documented as of this encounter Procedures Procedure Name Priority Date/Time Associated Diagnosis Comments SCAN - RADIOLOGY/IMAGING 02/18/2024 documented in this encounter Results * SCAN - RADIOLOGY/IMAGING (02/18/2024) Anatomical Region Laterality Modality Other us Provider Scanning Final Result documented in this encounter Visit Diagnoses Not on filedocumented in this encounter Care Teams Waist Pleater Relationship Specialty Start Date End Date No, Physician PCP - General 11/30/22 03/02/24 Rakesh Bravo MD [id number] [address] PCP - General Internal Medicine 03/03/24 documented as of this encounter
--- OUTSIDE RECORDS SUMMARY | 2025-01-29 16:28 | XMS_ITS | Clinical Summary ---
Author Organization [facility] Address [address] [place] [id number] Care Team Providers Care Farm Forestry And Garden Workers Name Role Phone Shanthi Liu APRN, CNP Primary Care Pr ovider Medications No known medications Active Problems Problem Noted Date Diagnosed Date NAHID (generalized anxiety disorder) 10/27/2024 Encounters Date Type Department Care Team Description 12/25/2024 4:00 PM CDT [facility] [address] [place] [phone] Adriana Colvin LCSW NAHID (generalized anxiety disorder) (Primary Dx) Discharge Disposition: Discharged to home or Selfcare 12/25/2024 Travel from Last 3 Months Social History Tobacco Use Types Packs/Day Years Used Date Smoking Tobacco: Never Passive Smoke Exposure: Never Smokeless Tobacco: Never Tobacco Cessation:Counseling Given: No Alcohol Use Standard Drinks/Week Comments Never 0 (1 standard drink = 0.6 oz pur e alcohol) Sexually Active Control Partners Comments Never Comments Unknown Sex and Gender Information Value Date Recorded Sex Assigned at Not on file 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 Gender Identity Not on file Sexual Orientation Not on file Plan of Treatment Upcoming Encounters Date Type Department Care Team (Latest Contact Info) Description 02/06/2025 4:00 PM TELECOM FIELD TECHNICIAN [facility] [address] [place] [id number] Adriana Colvin LCSW [address] [place] [address] Discharge Disposition: Discharged to home or Selfcare Health Maintenance Due Date Last Done Comments Hepatitis C Virus (HCV) Screening 1998 Pap Smear 11/19/2019 Influenza Immunization (#1) 11/24/202412/24, 02/08/2023, 12/27/2021, Additional history exists SARS-COV-2 Immunization ( season) 2024 04/14/2021, 10/16/2020, 06/10/2020 Respiratory Syncytial Virus (RSV) Immunization (Adult) (1 - 1-dose 75+ series) 2073 Pneumococcal Immunization Combined Completed 12/09/2003, 11/21/2000 Human Papillomavirus (HPV) Immunization Completed 07/05/2012, 11/01/2009, 08/30/2009 Meningococcal Immunization (ACWY) Completed 12/02/2014, 01/20/2010 DTaP/Tdap/Td Immunization Discontinued 2017, 01/20/2010, 11/19/2002, Additional history exists TdaP Immunization Completed 06/19/2017 Hepatitis B Immunization Completed 025, 09/23/2024, 12/08/1999, Additional history exists Rotavirus Immunization Aged Out No lo nger eligible based on patient's age to complete this topic Goals Goal Patient Goal Type Associated Problems Recent Progress Patient-Stated? Author ANXIETY Anxiety Improving( 4:25 PM CDT) Adriana Funez, VENEREAL DISEASE CONTROL HEAD Note: Goal/Objective: Increase coping skills, stress management tools and focus on self care. Anticipated Time Frame for Goal Completion: 6 months Goal Reviewed with: patient Readiness to change: Ready to change Department associated with goal: [facility] Steps to achieve goal: will attend counseling/psychotherapy sessions at least once monthly, at least 6 sessions, utilizing individual and/or group sessions to express thoughts and feelings. to identify, verbalize and process at least three contributing factors/triggers to anxiety and depression. to identify and verbalize at least three actions/skills to prevent and/or cope with anxiety and depression. to put into action, at least one time weekly, for one month, an action/skill to prevent and or cope with anxiety and depression. STRESS MANAGEMENT Stress Management Improving( 4:25 PM CDT) Yes Adriana Colvin, VENEREAL DISEASE CONTROL HEAD Note: Stop being so shy, wanna speak for myself, control my decisions, stop being anxious to say what I feel. Insurance [facility] [employer] [facility] Care Teams Farm Forest[employer] Garden Workers Relationship Specialty Start Date End Date Shanthi Liu, VESSEL SCRAPPER HELPER, TAXI TRUCK DRIVER [address] [place] [address] PCP - General Advanced Practice Nurse 07/16/24
--- OUTSIDE RECORDS SUMMARY | 2025-01-29 16:28 | XMS_ITS | Clinical Summary ---
Author Organization [facility] Address [address] [place] [address] Care Team Providers Care Division Merchandise Manager Name Role Phone Rakesh Bravo MD Primary Care Provider Allergies No known active allergies Medications hydrOXYzine (ATARAX) 50 mg tablet Take 0.5 tablets (25 mg total) by mouth every 8 (eight) hours as needed 02/18/2024 Active Active Problems Problem Noted Date Diagnosed Date Palpitations 03/05/2024 Medical History Medical History Date Comments Scoliosis Family History Medical History Relation Name Comments No Known Problems Brother Diabetes type II Father No Known Problems Mother Polycystic ovary syndrome Sister Relation Name Status Comments Brother Alive Father Alive Mother Alive Sister Alive Social History Tobacco Use Types Packs/Day Years Used Date Smoking Tobacco: Never Passive Smoke Exposure: Never Smokeless Tobacco: Never Tobacco Cessation:Counseling Given: Not Answered Comments Unknown Sex and Gender Information Value Date Recorded Sex Assigned at Not on file Legal Sex Female 9:16 AM CDT Gender Identity Not on file Sexual Orientation Not on file Last Filed Vital Signs Vital Sign Reading Time Taken Comments Blood Pressure 119/80 03/13/2024 9:00 AM WATER PURIFIER Pulse 124 03/05/2024 1:49 PM WATER PURIFIER Temperature - - Respiratory Rate - - Oxygen Saturation 97% 03/05/2024 1:46 PM WATER PURIFIER Inhaled Oxygen Concentration - - Weight 80.3 kg (177 lb) 03/05/2024 1:46 PM WATER PURIFIER Height 163.8 cm (5' 4.5) 03/05/2024 1:46 PM WATER PURIFIER Body Mass Index 29.91 03/05/2024 1:46 PM WATER PURIFIER Plan of Treatment Health Maintenance Due Date Last Done Comments Cervical Cancer Screening 1998 Depression Screening 1998 Hepatitis C Screening 1998 Regular Well Visit/Exam 18-64 2016 Covid-19 Vaccine (4 - 2024-2 6 season) 2024 04/14/2021, 04/14/2021, 10/16/2020, Additional history exists Influenza Vaccine (#1) 2024 , 02/08/2023, 12/27/2021, Additional history exists DTaP/Tdap/Td Vaccine (7 - Td or Tdap) 06/20/2027 06/19/2017, 01/20/2010, 11/19/2002, Additional history exists Hepatitis B Screening Completed 12/08/1999 , 03/03/1999, 03/03/1999, Additional history exists Pneumococcal vaccine <65 Completed 12/09/2003, 10/25 Varicella Vaccines Completed 01/09/2008, 12/08/1999 HPV Vaccines Completed 07/05/2012, 0811/2009, 08/30/2009 Insurance [facility] Care Teams Division Merchandise Manager Relationship Specialty [place] [address] [place] [address] PCP - General Internal Medicine 03/03/24
--- OUTSIDE RECORDS SUMMARY | 2025-01-29 16:28 | XMS_ITS | Clinical Summary ---
Author Organization [facility] Address [address] [place] [address] Care Team Providers Care Tail Board Worker Name Role Phone Unavailable Primary Care Provider Unavailabl e Allergies No known active allergies Medications No known medications Active Problems No known active problems Family History Medical History Relation Comments Diabetes Father Polycystic ovary syndrome Sister Relation Status Comments Brother Alive Father Alive Mother Alive Sister Alive Social History Tobacco Use Types Packs/Day Years Used Date Smoking Tobacco: Never Smokeless Tobacco: Never Tobacco Cessation:Counseling Given: Not Answered Alcohol Use Standard Drinks/Week Comments Not Currently 0 (1 standard drink = 0.6 oz pur e alcohol) PHQ-2 Answer Date Recorded Patient Health Questionnaire-2 Score 1 05/11/2022 Comments Unknown Sex and Gender Information Value Date Recorded Sex Assigned at Not on file Legal Sex Female 10:48 AM LEASING PROFESSIONAL Gender Identity Not on file Sexual Orientation Not on file Last Filed Vital Signs Vital Sign Reading Time Taken Comments Blood Pressure 122/68 05/11/2022 2:37 PM LEASING PROFESSIONAL Pulse 104 05/11/2022 2:37 PM LEASING PROFESSIONAL Temperature 36.4 C (97.5 F) 05/11/2022 2:37 PM LEASING PROFESSIONAL Respiratory Rate 16 05/11/2022 2:37 PM LEASING PROFESSIONAL Oxygen Saturation 97% 05/11/2022 2:37 PM LEASING PROFESSIONAL Inhaled Oxygen Concentration - - Weight 80.7 kg (178 lb) 05/11/2022 2:37 PM LEASING PROFESSIONAL Height 163.8 cm (5' 4.5) 05/11/2022 2:37 PM LEASING PROFESSIONAL Body Mass Index 30.08 05/11/2022 2:37 PM LEASING PROFESSIONAL Plan of Treatment Health Maintenance Due Date Last Done Comments Cervical Cancer Screening Pa p Smear (Age 21 to 29) Every 3 Years 1998 Cervical Cancer Screening 1998 HPV Vaccines (1 - 3-dose series) 2013 Hepatitis C 2016 DTaP, Tdap and Td Vaccines ( 1 - Tdap) 2017 Hepatitis B Vaccines (1 of 3 - 19+ 3-dose series) 2017 Annual Physical 03/09/2023 03/09/2022 COVID-19 Vaccine (1 - 2024-2 6 season) 2024 Influenza Adult (#1) 2024 Hepatitis A Vaccines Aged Out No long er eligible based on patient's age to complete this topic Meningococcal B Vaccine Aged Out No l onger eligible based on patient's age to complete this topic Meningococcal Vaccine Aged Out No paul anai eligible based on patient's age to complete this topic Pneumococcal Vaccine: Pediat rics (0 to 5 Years) and At-Risk Patients (6 to 49 Years) Aged Out No longer eligi ble based on patient's age to complete this topic RSV Immunizations Under 20 Months Aged Out No longer eligible based on patient's age to complete this topic Insurance [facility]
== END 2025-01-29 07:28 | disposition home or self-care (01) ==
PROVIDERS: PCP Nurse Practitioner Adult Health; Visit Provider Nurse Practitioner Adult Health
DX: M25.512 Pain in left shoulder (principal); M25.572 Pain in left ankle and joints of left foot
CPT/HCPCS: 73221; 73600

== ENCOUNTER 2025-03-03 13:22 | Outpatient (CLI) | payer OTHER, SELFPAY ==
--- NOTE | ~2025-03-03 | XR_ITS ---
EXAMINATION: XR shoulder LT min 2V, 03/03/2025 13:30 MACHINE QUILT STUFFER HISTORY: M25.512 - Pain in left shoulder X 3 YEARS, LIMITED ROM COMPARISON: No comparisons available. Findings: No acute fracture or malalignment. No significant degenerative changes. Soft tissues unremarkable. Impression: No acute fracture or malalignment. Reviewed, dictated and finalized at location P. INE QUILT STUFFER Impression: No acute fracture or malalignment.
== END 2025-03-03 13:23 | disposition home or self-care (01) ==
LOC: ANHIMG 13:23
PROVIDERS: PCP Nurse Practitioner Adult Health; Visit Provider Orthopaedic Surgery
DX: M25.512 Pain in left shoulder (principal)
CPT/HCPCS: 73030